=== PATIENT | female | born 1985 | race Caucasian/White ===

== ENCOUNTER → 2017-04-13 16:08 | Outpatient (CLI) | payer MEDICAID, SELFPAY ==
[2017-04-13 22:46] LABS: Chlamydia Trachomatis by PCR Negative (Negative); Neisserai gonorrhoeae by PCR Negative (Negative); Probe Check PASS; Sample Adequacy Control PASS; Specimen Processing Control PASS
== END ==
PROVIDERS: Visit Provider Obstetrics & Gynecology
DX: Z12.4 Encounter for screening for malignant neoplasm of cervix (principal); Z11.3 Encounter for screening for infections with a predominantly sexual mode of transmission
CPT/HCPCS: 87491; 87591

== ENCOUNTER → 2017-06-07 09:07 | Outpatient (CLI) | payer MEDICAID, SELFPAY | PROVIDERS: Family Provider Family Medicine; PCP Family Medicine; Visit Provider Family Medicine | DX: R00.2 Palpitations (principal) | CPT/HCPCS: 93225; 93226 ==

== ENCOUNTER → 2017-06-18 11:33 | Outpatient (CLI) | payer MEDICAID, SELFPAY ==
--- NOTE | 2017-06-18 17:27 | STRESSREP ---
Stress Test Report Exercise stress test. 31-year-old lady with a history of chest pain. Stress protocol: Resting EKG demonstrates normal sinus rhythm with rate of 90 bpm. Resting blood pressure is 122/90 mmHg. The patient exercised according to regular Diego protocol for total duration of 9 minutes completing stage III of the Diego protocol. The maximum heart rate attained was 173 bpm which was 91% of maximum predicted heart rate. The maximum workload attained was 10.1 metabolic equivalents. At rest there were no ST or T-wave changes noted suggest ischemia at peak exercise upsloping ST changes only were noted with no meet the criteria for ischemia. No clinical angina was noted no chest pain was noted. The test was terminated due to leg fatigue. The resting blood pressure is 122/90 with a peak blood pressure 180/84. No arrhythmias were noted. Conclusion: Exercise stress test with no EKG criteria for ischemia at a high workload. Good functional aerobic capacity.
== END ==
PROVIDERS: Family Provider Family Medicine; PCP Family Medicine; Visit Provider Family Medicine
DX: R07.89 Other chest pain (principal)
CPT/HCPCS: 93017

== ENCOUNTER 2018-01-23 11:43 | Emergency (ER) | payer MEDICAID, SELFPAY ==
[2018-01-23 11:44] VITALS: BP 152/94; PULSE 100; RESP 16; TEMP 36.9; O2SAT 96; BMI 31.8
--- NOTE | 2018-01-23 12:10 | ED.VISSUMM ---
- ER Visit Summary Date of Service: 01/23/18 Chief Complaint: Lower abdominal discomfort History of Present Illness: The patient is a 32 F no significant past medical history. Prior . Patient states she had gradual onset of mild lower abdominal discomfort yesterday. Somewhat worse. She denies nausea, vomiting, diarrhea or constipation. No dysuria. No vaginal bleeding or discharge. Last menstrual period was last week. No fever or back pain. No upper abdominal pain. Normal appetite. No specific right lower quadrant pain. Physical Examination: Young female. No acute distress. Vital signs are stable and afebrile. H EENT exam unremarkable. Lungs clear to auscultation bilaterally. Heart regular rhythm no murmur. Abdomen is. No peritoneal signs. No reproducible tenderness but she complains of suprapubic discomfort. No hernias or masses. Nondistended. No McBurney's point tenderness. Upper abdomen is benign. Patient is moving all 4 extremities. They are neurovascularly intact. No edema. Back nontender. Neurologically awake and alert with no focal motor deficits. Test Results: Urinalysis shows no acute abnormality. No signs of infection. Urine is negative. Emergency Department Course and Treatment: On repeat exam patient is doing well 12:56 PM. Abdomen is benign. She will be discharged to home with outpatient follow-up. Treatment Plan: Return to ER feeling worse. Follow-up with her primary care physician. Disposition: Discharge Impression: Lower abdominal pain of uncertain etiology This note was generated with [employer] dictation software. It may contain incorrect words, spelling, and punctuation that were not noted in review of the chart prior to signing ED Disposition - Plan for ED Patient: Chief Complaint: Abd Pain Referrals: Giuseppe Chin MD [Primary Care Provider] -
[2018-01-23 12:36] LABS: Bacteria 0 SEEN /hpf (None Seen); Mucous, Urine 0 SEEN /hpf (<or=2+); Red Blood Cells-Urine 0 SEEN /hpf (0-5); White Blood Cells 0 SEEN /hpf (0-5)
[2018-01-23 12:45] LABS: Color, Urine Yellow (Yellow); Glucose, Dipstick Normal (Normal); Ketone-Dipstick Negative (Negative); Leukocyte Esterase-Dipstick Negative /ul (Negative); Nitrite-Dipstick Negative (Negative); Occult Blood-Urine 50 /ul (Negative); Protein-Dipstick Negative (Negative); Urine Bilirubin Dipstick Negative (Negative); Urine Clarity Clear (Clear); Urine Urobilinogen Normal (Normal)
[2018-01-23 12:48] LABS: Internal QC Validated? YES +Cl - CLEAR BKGD; Pregnancy, Urine Negative Negative
[2018-01-23 12:51] LABS: Squamous Epithelial Cells - UA 0-5 SEEN /hpf (5-10)
--- NOTE | 2018-01-23 12:58 | ED.DEP ---
ED Disposition - Plan for ED Patient: Disposition: Home or Assisted Living Chief Complaint: Abd Pain Instructions: ED Abdominal Pain Unkn Cause Referrals: Giuseppe Chin MD [Primary Care Provider] - 1 Week if not improving Additional Instructions: Return to the ER if increasing pain, fever or localizes in your right lower quadrant. Otherwise follow-up your primary care physician. Your urine and urinalysis were both negative.
[2018-01-23 13:12] VITALS: BP 117/72; PULSE 86; RESP 16; O2SAT 98
== END 2018-01-23 13:13 | disposition home or self-care (01) ==
PROVIDERS: Emergency Provider Emergency Medicine; Family Provider Family Medicine; PCP Family Medicine
DX: R10.30 Lower abdominal pain, unspecified (principal); Z72.0 Tobacco use; Z79.899 Other long term (current) drug therapy
CPT/HCPCS: 81001; 81025; 99282

== ENCOUNTER → 2018-03-21 08:29 | Outpatient (CLI) | payer MEDICAID, SELFPAY ==
--- NOTE | 2018-03-21 08:32 | RAD_ITS ---
STUDY: AIR-CONTRAST UPPER GI SERIES WITH SMALL BOWEL FOLLOW-THROUGH EXAMINATION. REASON FOR EXAM: Female, 32 years old. One-year history of diarrhea with abdominal pain and abdominal bloating. FLUOROSCOPY TIME (if supplied): (1:32) minutes/seconds. 18 fluoroscopic images were obtained. TECHNIQUE: The patient ingested barium. Multiple images of the esophagus, stomach and duodenum were obtained. Following this, a small bowel follow-through examination was performed. COMPARISON: None. FINDINGS: The esophagus is unremarkable. There is no evidence of esophageal obstruction. No evidence of reflux. No mass lesion is seen. The stomach is unremarkable. There is no evidence of ulceration. No mass lesion is seen. There is evidence of a small diverticulum in the second portion of the duodenum. A small bowel follow-through examination was then obtained. The small bowel transit is normal. There is no evidence of intrinsic or extrinsic small bowel disease. The terminal ileum is unremarkable. RAD/Upper GI/w Small Bowel IMPRESSION: Unremarkable examination except for a small diverticulum in the medial aspect of the second portion of the duodenum. Electronically Signed: Jose Centeno MD at 9:49 EST Tel [phone], Service support ,
== END ==
PROVIDERS: Family Provider Family Medicine; PCP Family Medicine; Referring Provider Nurse Practitioner Adult Health; Visit Provider Nurse Practitioner Adult Health
DX: R19.7 Diarrhea, unspecified (principal)
CPT/HCPCS: 74249

== ENCOUNTER → 2018-11-07 18:02 | Outpatient (CLI) | payer MEDICAID, SELFPAY ==
[2018-11-07 09:05] VITALS: BMI 31.8
[2018-11-07 21:54] LABS: Chlamydia Trachomatis by PCR Negative (Negative); Neisserai gonorrhoeae by PCR Negative (Negative); Probe Check PASS; Sample Adequacy Control PASS; Specimen Processing Control PASS
== END ==
PROVIDERS: Referring Provider Nurse Practitioner Women's Health; Visit Provider Nurse Practitioner Women's Health
DX: A64 Unspecified sexually transmitted disease (principal)
CPT/HCPCS: 87491; 87591

== ENCOUNTER 2019-10-13 17:54 | Emergency (ER) | payer MEDICAID, SELFPAY ==
[2018-11-17 09:02] VITALS: BMI 37.3
[2019-10-13 17:55] VITALS: BP 139/89; PULSE 99; RESP 16; TEMP 36.3; O2SAT 96; BMI 37.2
--- NOTE | 2019-10-13 18:30 | ED.VIS.FLU ---
History of Present Illness Chief Complaint: Cough Informant: Patient Known exposure: Yes - friend, + COVID Onset: Days Context: Gradual Onset Timing: Continuous Associated Symptoms: Cough, Fever - subjective, Sore throat Chest Pain: None Narrative: Patient is a 33-year-old female that has a history of migraines as well as tobacco use presenting with 5 days of cough. She states it was just in the morning in the evening but now is been worse and is all day. He states he started to have some mucus production. She said 2 episodes of posttussive emesis today. She thinks she might of had a fever 6 days ago as well as generalized weakness but no other symptoms. Of note patient was recently on a course of Keflex and Bactrim for MRSA skin infection and just took her last dose been a biotics for that yesterday. Patient states she had a friend over 1 week ago who tested positive for COVID 3 days after she saw her. Patient denies any GI or symptoms. She denies any change in her taste or smell. She does have a mild headache but states it is not unusual for her. No other complaints at this time. Past Medical History - Allergies and Home Meds Allergies/Adverse Reactions: Allergies No Known Allergies Allergy (Verified 10/13/19 17:55) Primary Care Physician: Giuseppe Chin MD [Primary Care Provider] - Past Medical History: - - MRSA, migraines Smoking Status: Current every day smoker Review of Systems General: Reports: Chills, Malaise ENT: Reports: Sore throat - yesterday. Denies: Bilateral ear pain, Rhinorrhea Cardiovascular: Denies: Chest pain, Palpitations Respiratory: Reports: Cough, Sputum. Denies: Dyspnea, Dyspnea on exertion Gastrointestinal: Reports: Vomiting - post tussive. Denies: Abdominal pain, Nausea, Diarrhea, Melena, Hematochezia Genitourinary: Denies: Dysuria, Hematuria, Frequency Musculoskeletal: Denies: Myalgias, Arthralgias Skin: Denies: Rash Neurological: Denies: Headache, Weakness, Numbness Physical Exam Vital Signs/Narrative: Vital Signs Temp Pulse Resp BP Pulse Ox 10/13/19 17:55 97.4 F L 99 16 139/89 H 96 Inital Vital Signs reviewed: Yes General: Well nourished, Well developed, Obese Head: Normocephalic, Atraumatic Eyes: Perrl, EOMI ENT: Moist mucous membranes, TM's clear Neck: Supple, Nontender, No lymphadenopathy, No JVD Cardiovascular: Regular rate, Regular rhythm, No murmurs Respiratory: Negative for: Wheezing, Diminished, Decreased Air Movement Abdomen: Soft, Nontender, Nondistended, Normal bowel sounds Back: Nontender, Normal Inspection Extremities: Nontender, No edema Skin: Normal color, No rash Neurological: Alert, Oriented x3, Cranial nerves II-XII grossly intact, Normal Strength, Normal Sensation Psychological: Normal affect Diagnostic/Tx/Re-eval Chest X-Ray - ED: 1 View, Read by ED Physician, Read by Radiologist, Right Infiltrate, Left Infiltrate Clinical Impression(s) from Imaging Studies Chest X-Ray 10/13/19 19:10 IMPRESSION: patchy bilateral pulmonary infiltrates most significant within the right lower lobe likely pneumonia, possible atypical viral pneumonia. Electronically Signed: Abiodun Green, at 20:10 EDT Tel , Service support , Laboratory Data 10/13/19 18:40 COVID-19 (BHANU) Negative - Medical Decision Making Patient is evaluated for 5 days of respiratory symptoms. She is had a known exposure to coronavirus. She appears nontoxic in no acute distress. She is not tachypneic or hypoxic. She is clear breath sounds. Chest x-ray is obtained which does show patchy bilateral infiltrates most predominant in the right lower lobe consistent with a viral pneumonia. Patient be treated with doxycycline for atypical infection. She is not wheezing and I do not think steroids are indicated at this time nor inhaler. Patient is given return precautions. She is stable she will be tested on a send out lab for coronavirus. She is counseled that she should treat herself as if she does have COVID-19 until her results return or she is 3 days without symptoms. Patient is counseled on signs and symptoms requiring return to the emergency room. Patient verbalizes agreement and understand this plan. Patient discharged home in stable and improved condition. Patient is given first dose of doxycycline in the emergency room. ED Disposition - Plan for ED Patient: Disposition: Home or Assisted Living Diagnosis: Bilateral pneumonia, Suspected COVID-19 virus infection Prescriptions: Doxycycline 100 mg PO BID #14 cap Transmission Status: Pending to [facility] Referrals: Giuseppe Chin MD [Primary Care Provider] - Additional Instructions: I suspect that you have coronavirus infection. The swab will take 3 to 5 days to return. He will be contacted with the results. In the meantime please treat yourself as if you do have it and quarantine yourself from others to prevent the spread. You may take [id number] cough and decongestant medicines as needed for symptoms. Please return the emergency room if you have any worsening symptoms such as signs of dehydration or difficulty breathing. At this time you are stable to go home. Your chest x-ray does show signs of pneumonia which is why you were started on antibiotics.
--- NOTE | 2019-10-13 19:10 | RAD_ITS ---
STUDY: X-RAY CHEST REASON FOR EXAM: Female, 33 years old. COUGH X 1 WEEK, PAIN WITH COUGH TECHNIQUE: Portable chest COMPARISON: None. FINDINGS: There are patchy bilateral pulmonary infiltrates most significant within the right lower lobe. There is no demonstrated pleural abnormality. Normal size heart. Normal mediastinum and skye. Normal visualized pulmonary arteries. Normal visualized aortic arch and descending thoracic aorta. Normal visualized thoracic spine. Normal visualized ribs, clavicles, and shoulders. There is no demonstrated abnormality of the visualized soft tissue structures of the upper abdomen. RAD/Chest 1 View (Portable) IMPRESSION: patchy bilateral pulmonary infiltrates most significant within the right lower lobe likely pneumonia, possible atypical viral pneumonia. Electronically Signed: Abiodun Green, at 20:10 EDT Tel , Service support ,
[2019-10-13 20:39] LABS: Probe Check PASS; Specimen Processing Control PASS
[2019-10-13] MEDS: Doxycycline 100 MG CAPSULE PO (20:54)
[2019-10-13 20:55] VITALS: BP 122/73; PULSE 86; RESP 16; O2SAT 96
== END 2019-10-13 20:57 | disposition home or self-care (01) ==
PROVIDERS: Emergency Provider Emergency Medicine; PCP Family Medicine
DX: J18.9 Pneumonia, unspecified organism (principal); Z20.828 Contact with and (suspected) exposure to other viral communicable diseases; R50.9 Fever, unspecified; R05 Cough; J02.9 Acute pharyngitis, unspecified; F17.200 Nicotine dependence, unspecified, uncomplicated; Z86.14 Personal history of Methicillin resistant Staphylococcus aureus infection
CPT/HCPCS: 71045; 87635; 94799; 99283; U0003

== ENCOUNTER → 2019-12-11 12:00 | Outpatient (CLI) | payer MEDICAID, SELFPAY ==
[2019-12-11 11:49] VITALS: BMI 37.2
[2019-12-11 13:36] LABS: HIV - WCH Non-Reactive (Nonreactive)
[2019-12-12 16:19] LABS: HSV 2 IgG < 0.91 index (0.00-0.90)
[2019-12-14 02:04] LABS: Rapid Plasmin Reagin (RPR) NONREACTIVE (NONREACTIVE)
[2019-12-14 04:11] LABS: Chlamydia By Nucleic Acid AMP Negative (Negative)
[2019-12-14 11:06] LABS: Gonococcus By Nucleic Acid AMP Negative (Negative)
== END ==
PROVIDERS: PCP Family Medicine; Referring Provider Nurse Practitioner Women's Health; Visit Provider Nurse Practitioner Women's Health
DX: Z11.3 Encounter for screening for infections with a predominantly sexual mode of transmission (principal)
CPT/HCPCS: 36415; 86592; 86695; 86696; 86703; 87491; 87591

== ENCOUNTER 2019-12-22 09:24 | Emergency (ER) | payer MEDICAID, SELFPAY ==
[2019-12-11 11:49] VITALS: BMI 37.2
[2019-12-22 09:26] VITALS: BP 136/85; PULSE 77; RESP 18; TEMP 37.1; O2SAT 97; BMI 37.8
--- NOTE | 2019-12-22 09:37 | RAD_ITS ---
STUDY: X-RAY CHEST REASON FOR EXAM: Female, 33 years old. COUGH,SOB, CHEST PAIN TECHNIQUE: Single AP portable view of the chest. COMPARISON: None. FINDINGS: The lungs are clear and expanded. There is no demonstrated pleural abnormality. Normal size heart. Normal mediastinum and skye. Normal visualized pulmonary arteries. Normal visualized aortic arch and descending thoracic aorta. Normal visualized thoracic spine. Normal visualized ribs, clavicles, and shoulders. There is no demonstrated abnormality of the visualized soft tissue structures of the upper abdomen. RAD/Chest 1 View (Portable) IMPRESSION: Normal x-ray examination of the chest. Electronically Signed: Farzana Lopez, at 11:00 EDT Tel , Service support ,
[2019-12-22 09:38] VITALS: BP 136/85; PULSE 77; RESP 18; TEMP 37.1; O2SAT 97
--- NOTE | 2019-12-22 09:38 | ED.DCSUM_ITS ---
History of Present Illness Informant: Patient Onset: Days Current Severity: Moderate Narrative: 33 year old female with no significant PMH presents with productive cough and shortness of breath x5 days. She has chest pain and tightness when coughing. Today she coughed so hard she vomited. 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 She had pneumonia in October 2019 and tested negative for COVID at that time. She smokes 1 PPD. Denies fevers, chills, nausea, hemoptysis, abdominal pain, diarrhea, or rash. <FranciscoNadja - Last Filed: 12/22/19 15:27> <Makc Morales - Last Filed: 12/22/19 16:24> Chief Complaint: Shortness of Breath Past Medical History Past Medical History: None Smoking Status: Current every day smoker <Nadja Singh - Last Filed: 12/22/19 15:27> <Mack Morales - Last Filed: 12/22/19 16:24> - Allergies and Home Meds Allergies/Adverse Reactions: Allergies No Known Allergies Allergy (Verified 12/22/19 09:26) Primary Care Physician: Giuseppe Chin MD [Primary Care Provider] - Review of Systems General: Denies: Chills, Fever, Sweats Eyes: Denies: Visual changes - bilaterally, Diplopia ENT: Denies: Rhinorrhea, Sore throat Cardiovascular: Reports: Chest pain. Denies: Palpitations Respiratory: Reports: Dyspnea, Cough, Sputum. Denies: Dyspnea on exertion Gastrointestinal: Denies: Abdominal pain, Nausea, Vomiting, Diarrhea, Melena, Hematochezia Genitourinary: Denies: Dysuria, Hematuria, Frequency Musculoskeletal: Denies: Back pain, Extremity Pain Skin: Reports: Wounds. Denies: Rash Neurological: Denies: Headache, Weakness, Numbness <FarnazKeysha albaa - Last Filed: 12/22/19 15:27> Physical Exam Vital Signs/Narrative: Vital Signs Temp Pulse Resp BP Pulse Ox 12/22/19 09:38 98.7 F 77 18 136/85 H 97 12/22/19 09:26 98.7 F 77 18 136/85 H 97 General: Well nourished, Well developed, No Acute Distress Head: Normocephalic, Atraumatic Eyes: Perrl, EOMI ENT: Moist mucous membranes, No rhinorrhea Neck: Supple, Nontender Cardiovascular: Regular rate, Regular rhythm, No murmurs Respiratory: No distress, CTA bilaterally, Chest nontender Abdomen: Soft, Nontender, Nondistended, Normal bowel sounds Back: Normal Inspection Extremities: No edema Skin: Normal color, No rash Neurological: Alert, Oriented x3, Cranial nerves II-XII grossly intact Psychological: Normal affect, Normal Mood <Nadja Singh - Last Filed: 12/22/19 15:27> Diagnostic/Tx/Re-eval Clinical Impression(s) from Imaging Studies Chest X-Ray 12/22/19 09:37 IMPRESSION: Normal x-ray examination of the chest. Electronically Signed: Farzana Lopez, at 11:00 EDT Tel , Service support , Laboratory Data 12/22/19 12/22/19 12/22/19 09:30 09:30 09:30 WBC 4.5 RBC 5.26 Hgb 15.7 H Hct 45.0 MCV 85.6 MCH 29.8 MCHC 34.9 RDW Std Deviation 37.5 RDW Coeff of Criselda 11.9 Plt Count 206 MPV 8.9 Immature Gran % (Auto) 0.200 Neut % (Auto) 51.1 Lymph % (Auto) 36.1 [facility] % (Auto) 9.7 Eos % (Auto) 2.2 Baso % (Auto) 0.7 Absolute Neuts (auto) 2.3 Absolute Lymphs (auto) 1.64 Nucleated RBC % 0 Sodium 138 Potassium 3.6 Chloride 107 Carbon Dioxide 24.0 Anion Gap 7 BUN 10 Creatinine 0.85 Estim Creat Clear Calc 78.60 Est GFR (MDRD) Af Amer 99 Est GFR (MDRD) Non-Af 82 BUN/Creatinine Ratio 11.7 Glucose 106 Lactic Acid 1.5 Calcium 8.8 Total Bilirubin 0.40 AST 23 ALT 46 Alkaline Phosphatase 69 Total Protein 7.3 Albumin 3.8 Globulin 3.5 Albumin/Globulin Ratio 1.1 - Medical Decision Making Patient appears well nontoxic. Vital signs show bradycardia 52, otherwise normal. Sat 98% on room air. She states she has been told she has a low heart rate before. Lungs clear to auscultation with transient wheezing in right upper lobe. She was treated with albuterol. Basic labs are normal. Chest x-ray shows no acute process. COVID-19 test is pending and she needs to self quarantine. We discussed return precautions including chest pain or worsening shortness of breath. Symptomatic treatment for now and she was given a prescription for albuterol. She was agreeable and discharged home in stable condition. <Nadja Singh - Last Filed: 12/22/19 15:27> - Medical Decision Making I supervised the PA and have performed my own pertinent history and physical. Results and treatment plan were discussed. HPI: Patient reports she has a cough began 5 days ago. Is productive yellow sputum without blood. She reports chest pain with coughing only. She reports that she has been wheezing. States that she ran out of her inhaler. Patient denies any known sick contacts. 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 PE: Vitals: Stable. Afebrile. General: Well-nourished and well-developed. Head: Normocephalic atraumatic. Neck: Supple, no lymphadenopathy. No JVD. Nontender. Cardiovascular: Regular rate and rhythm. No murmurs. Respiratory: No respiratory distress. Clear to auscultation bilaterally. Abdominal: Soft, nontender, nondistended, normal bowel sounds. No guarding, rebound, or peritoneal signs. Back: Nontender. Extremities: Nontender, no edema. Skin: Normal color, no rash. Neurologic: Alert and oriented ?3. Cranial nerves II through XII are intact. Normal strength and sensation. Psych: Normal affect. Emergency Department course: Chest x-ray shows no infiltrate. Labs are unremarkable. COVID-19 was sent and is pending. Treatment Plan: Patient be discharged with an albuterol MDI. She is instructed to quarantine. Follow-up with her primary care physician in 10 to 14 days if not improving. Return to the emergency department for any worsening symptoms. This note was generated with [employer] dictation software. It may contain incorrect words, spelling, and punctuation that were not noted in review of the chart prior to signing. <Mack Morales - Last Filed: 12/22/19 16:24> ED Disposition <Nadja Singh - Last Filed: 12/22/19 15:27> <Mack Morales - Last Filed: 12/22/19 16:24> - Plan for ED Patient: Disposition: Home or Assisted Living Diagnosis: Suspected COVID-19 virus infection, Cough Instructions: ED Upper Resp Infec No Abx Tx Prescriptions: Albuterol Inhaler [Ventolin Hfa] 1 puff INHALATION Q4H PRN PRN #1 inhaler PRN Reason: Allergies Transmission Status: Received by [facility] #[id number] Referrals: Giuseppe Chin MD [Primary Care Provider] -
[2019-12-22 10:00] LABS: Absolute Lymphocyte Count 1.64 X10^3/uL (0.83-4.51); Absolute Neutrophil Count 2.3 X10^3/uL (2.0-7.7); Basophil# 0.03 X10^3/uL; Basophil% 0.7 % (0-1); Eosinophils% 2.2 % (0-5); Hemoglobin 15.7 g/dL (12.0-15.0); Lymphocyte # 1.64 X10^3/ul (4.0); Lymphocyte % 36.1 % (19-41); Mean Corp Hgb Conc 34.9 g/dL (32-36); Mean Corpuscular Hgb 29.8 pg (27.0-32.0); Mean Corpuscular Volume 85.6 fL (81-99); Mean Platelet Vol. 8.9 fl (6.2-12.0); Monocyte# 0.44 X10^3/uL; Monocyte% 9.7 % (0-10); NRBC Flagged by Analyzer 0 % (0-5); Neutrophil # 2.32 X10^3/uL (2.7-7.7); Neutrophil % 51.1 % (47-70); Platelet Count 206 K/mm3 (150-450); RBC Distribution Width CV 11.9 % (11.6-14.6); RBC Distribution Width SD 37.5 fl (35.1-43.9); Red Blood Count 5.26 M/mm3 (4.2-5.4); White Blood Count 4.5 K/mm3 (4.4-11.0)
[2019-12-22 10:24] LABS: Lactic Acid 1.5 mmol/L (0.4-1.9)
[2019-12-22 10:34] LABS: ALB/GLOB Ratio 1.1 RATIO (0.9-2.4); AST(SGOT) 23 U/L (15-37); Alanine Aminotransfer ALT/SGPT 46 U/L (13-56); Albumin, Serum 3.8 g/dL (3.2-5.0); Alkaline Phosphatase 69 U/L (45-117); Anion Gap 7 (5-15); BUN 10 mg/dL (7-18); BUN/Creat Ratio 11.7 RATIO (10-20); Calcium,Total 8.8 mg/dL (8.5-10.1); Chloride 107 mmol/L (98-107); Creatinine, Serum 0.85 mg/dL (0.55-1.02); EST Glomerular Filtration Rate 82 mL/min (>60); Est Glom Filt Rate - Afr Amer 99 mL/min (>60); Globulin 3.5 g/dL (2.2-4.2); Glucose 106 mg/dL (74-106); Potassium 3.6 mmol/L (3.5-5.1); Protein, Total 7.3 g/dL (6.4-8.2); Sodium Level 138 mmol/L (136-145)
[2019-12-22 11:14] VITALS: BP 121/72; PULSE 62; RESP 14; TEMP 36.6; O2SAT 97
[2019-12-22 11:34] VITALS: BP 153/65; PULSE 52; RESP 13; O2SAT 98
== END 2019-12-22 11:45 | disposition home or self-care (01) ==
LOC: ED 10:18
PROVIDERS: Emergency Provider Physician Assistant; PCP Family Medicine
DX: Z03.818 Encounter for observation for suspected exposure to other biological agents ruled out (principal); R05 Cough; R06.2 Wheezing; R06.02 Shortness of breath; F17.200 Nicotine dependence, unspecified, uncomplicated; Z87.01 Personal history of pneumonia (recurrent)
CPT/HCPCS: 36415; 71045; 80053; 83605; 85025; 87040; 99284

== ENCOUNTER → 2020-01-08 | Outpatient (CLI) | payer MEDICAID, SELFPAY ==
--- NOTE | 2020-01-08 | TISS_PTH ---
PATIENT: ASIA DALTON LOC: [facility] U#:[id number] AGE/SX: 34/F ROOM: RE01/08/[address]: Dr. Kimber Ledbetter MD : [id number] BED: DIS: 01/08/2020 SPEC #: [id number] RECD: 01/08/20 16:42 STATUS: INES BELINDA #: [id number] DANIKA: 01/08/20 00:[address]: Kimber Ledbetter DEPT: SURGICAL PATHOLOGY RECD BY: Leonidas Menezes ENTERED: 01/09/20 09:30 SP TYPE: Tissue Bx OT DR: Dr. Giuseppe Chin MD Tissues: TISSUE SURGICALLY REMOVED Procedures: Surgery Specimen Level IV HEADER OPERATION: Skin tag removal PRE-OP DIAGNOSIS: Skin tag vulva TISSUE SUBMITTED: Skin tag vulva MICROSCOPIC DIAGNOSIS Skin tag of vulva, biopsy: Fragments of fibroepithelial polyp, inflamed. Hyperkeratosis and focal parakeratosis. AM:bryce 01/10/20 MICROSCOPIC DESCRIPTION Slides are reviewed. GROSS DESCRIPTION Received is one container labeled with the patient's name and not further designated. The specimen consists of multiple polypoid pieces of haddad-light brown skin that in aggregate measure 3 x 1.5 x 0.3 and 0.2 to 0.7 cm in greatest dimension. The entire specimen is submitted in one cassette. / YANELIS:byrce 01/09/20 TC:5 CPT: 84220
[2020-01-08 09:09] VITALS: BMI 37.9
== END | disposition home or self-care (01) ==
LOC: LABSPEC 17:20
PROVIDERS: PCP Family Medicine; Referring Provider Obstetrics & Gynecology; Visit Provider Obstetrics & Gynecology
DX: N76.0 Acute vaginitis (principal)
CPT/HCPCS: 87070; 87205; 88305

== ENCOUNTER 2020-03-31 17:16 | Emergency (ER) | payer MEDICAID, SELFPAY ==
[2020-01-08 09:09] VITALS: BMI 37.9
[2020-03-31 17:17] VITALS: BP 140/72; PULSE 76; RESP 18; TEMP 36; O2SAT 97; BMI 39.9
--- NOTE | 2020-03-31 17:46 | ED.DCSUM_ITS ---
History of Present Illness Chief Complaint: Cellulitis Narrative: 34-year-old female presenting with cellulitis on left lower abdomen. Patient was seen in urgent care yesterday and started on Bactrim and Keflex. She is only had 1 day of antibiotics. She was told that if the outlined area became erythematous outside the line she should come to the ER. Patient is not had any systemic signs or symptoms. No fevers, chills, nausea, vomiting. She does have a history of MRSA. Past Medical History - Allergies and Home Meds Allergies/Adverse Reactions: Allergies No Known Allergies Allergy (Verified 03/31/20 17:16) Primary Care Physician: Giuseppe Chin MD [Primary Care Provider] - Past Medical History: - - Cellulitis, MRSA Surgical History: noncontributory Lives: Alone Smoking Status: Current every day smoker Alcohol: None Drugs: None Review of Systems General: Denies: Chills, Fever, Sweats Eyes: Denies: Visual changes - bilaterally, Diplopia ENT: Denies: Rhinorrhea, Sore throat Cardiovascular: Denies: Chest pain, Palpitations Respiratory: Denies: Dyspnea, Cough, Dyspnea on exertion Genitourinary: Denies: Dysuria, Hematuria, Frequency Musculoskeletal: Denies: Back pain, Extremity Pain Skin: Reports: Abscess, Abrasions Neurological: Denies: Headache, Weakness, Numbness Psych: Denies: Depression, Anxiety Physical Exam Vital Signs/Narrative: Vital Signs Temp Pulse Resp BP Pulse Ox 03/31/20 17:17 96.8 F L 76 18 140/72 H 97 General: Well nourished, No Acute Distress Head: Normocephalic, Atraumatic Eyes: Perrl, EOMI ENT: Moist mucous membranes Cardiovascular: Regular rate, Regular rhythm Respiratory: No distress, CTA bilaterally Abdomen: Soft, Nondistended Skin: Rash - 3 cm circular area of erythema, warmth. There is a central scab where this was drained yesterday. There is no fluctuance or mass. Diagnostic/Tx/Re-eval - Medical Decision Making 34-year-old female with history of MRSA and cellulitis on the left lower abdomen presents for evaluation given that her redness has spread slightly outside of the marked area that was done yesterday by urgent care. She has no systemic signs or symptoms. She has had less than 24 hours of antibiotics. She is on Bactrim and Keflex. Does appear to have cellulitis on the left lower abdomen I recommended continuing antibiotics and monitoring this. She will be given a [id number] prescription for clindamycin if these antibiotics are not effective. She is counseled that if she starts to feel ill or the rash starts to spread more rapidly she should return to the ED for repeat evaluation. Patient is amenable to this plan and she stable for discharge. Impression: 1. Cellulitis left lower abdomen ED Disposition - Plan for ED Patient: Disposition: Home or Assisted Living Instructions: Cellulitis Prescriptions: Clindamycin [Cleocin] 450 mg PO TID #90 cap Transmission Status: Received by [facility] #30 Referrals: Giuseppe Chin MD [Primary Care Provider] -
== END 2020-03-31 17:57 | disposition home or self-care (01) ==
PROVIDERS: Emergency Provider Student in an Organized Health Care Education/Training Program; PCP Family Medicine
DX: L03.311 Cellulitis of abdominal wall (principal); F17.200 Nicotine dependence, unspecified, uncomplicated; Z86.14 Personal history of Methicillin resistant Staphylococcus aureus infection
CPT/HCPCS: 99282

== ENCOUNTER → 2021-09-29 | Outpatient (CLI) | payer MEDICAID, SELFPAY ==
[2021-09-29 15:46] LABS: Absolute Lymphocyte Count 1.83 X10^3/uL (0.83-4.51); Absolute Neutrophil Count 2.4 X10^3/uL (2.0-7.7); Basophil# 0.04 X10^3/uL; Basophil% 0.8 % (0-1); Eosinophil# 0.22 X10^3/uL; Eosinophils% 4.3 % (0-5); Hematocrit 43.6 % (37-47); Hemoglobin 15.2 g/dL (12.0-15.0); Lymphocyte # 1.83 X10^3/ul (0.83-4.51); Lymphocyte % 36.2 % (19-41); Mean Corp Hgb Conc 34.9 g/dL (32-36); Mean Corpuscular Hgb 30.1 pg (27.0-32.0); Mean Corpuscular Volume 86.3 fL (81-99); Mean Platelet Vol. 9.5 fl (6.2-12.0); Monocyte# 0.53 X10^3/uL; Monocyte% 10.5 % (0-10); NRBC Flagged by Analyzer 0 % (0-5); Neutrophil # 2.43 X10^3/uL (2.7-7.7); Platelet Count 224 K/mm3 (150-450); RBC Distribution Width CV 12.6 % (11.6-14.6); RBC Distribution Width SD 39.9 fl (35.1-43.9); Red Blood Count 5.05 M/mm3 (4.2-5.4); White Blood Count 5.1 K/mm3 (4.4-11.0)
[2021-09-29 15:55] LABS: Erythrocyte Sedimentation Rate 5 mm/hr (0-30)
[2021-09-29 16:28] LABS: ALB/GLOB Ratio 1.2 RATIO (0.9-2.4); AST(SGOT) 16 U/L (15-37); Alanine Aminotransfer ALT/SGPT 33 U/L (13-56); Albumin, Serum 3.7 g/dL (3.2-5.0); Alkaline Phosphatase 47 U/L (45-117); Anion Gap 6 (5-15); BUN 11 mg/dL (7-18); BUN/Creat Ratio 13.5 RATIO (10-20); Chloride 107 mmol/L (98-107); Creatinine, Serum 0.82 mg/dL (0.55-1.02); EST Glomerular Filtration Rate 85 mL/min (>60); Est Glom Filt Rate - Afr Amer 103 mL/min (>60); Globulin 3.2 g/dL (2.2-4.2); Glucose 78 mg/dL (74-106); Potassium 3.6 mmol/L (3.5-5.1); Protein, Total 6.9 g/dL (6.4-8.2); Sodium Level 138 mmol/L (136-145); T4 Free Direct 0.83 ng/dL (0.76-1.46); Thyroid Stim Hormone (TSH) 2.72 uIU/mL (0.358-3.74)
[2021-09-29 19:05] LABS: T3 Total - Triiodothyronine 1.02 ng/mL (0.6-1.81)
[2021-10-02 12:08] LABS: RNP Ab 1.3 AI (0.0-0.9); SJOGREN'S Anti-SS-A test < 0.2 AI (0.0-0.9); SJOGREN'S Anti-SS-B test < 0.2 AI (0.0-0.9); Smith Ab <0.2 AI (0.0-0.9)
[2021-10-02 12:58] LABS: Thyroid Peroxidase AB < 8 IU/mL (0-34)
[2021-10-03 07:58] LABS: Anti-Histone Abs 0.7 Units (0.0-0.9); Anti-Nuclear Antibody Test Negative (.); Anti-dsDNA Ab 1 IU/mL (0-9)
== END | disposition home or self-care (01) ==
PROVIDERS: PCP Family Medicine
DX: L30.9 Dermatitis, unspecified (principal)
CPT/HCPCS: 36415; 80053; 84439; 84443; 84480; 85025; 85652; 86038; 86225; 86235; 86376

== ENCOUNTER → 2022-08-28 | Outpatient (CLI) | payer MEDICAID, SELFPAY ==
[2022-08-28 13:18] LABS: HIV - WCH Non-Reactive (Nonreactive); Hepatitis B Surface Antigen Non-Reactive (Nonreactive); Hepatitis C Antibody Non-Reactive (Nonreactive); Syphilis Antibodies Non-reactive
[2022-08-31 21:07] LABS: Chlamydia By Nucleic Acid AMP Negative (Negative); Gonococcus By Nucleic Acid AMP Negative (Negative)
[2022-09-03 21:07] LABS: HPV APTIMA, High Risk Positive (Negative); HPV Genotype 16, Aptima Negative (Negative); HPV Genotype 18,45 Aptima Negative (Negative)
== END | disposition home or self-care (01) ==
PROVIDERS: PCP Family Medicine; Referring Provider Obstetrics & Gynecology; Visit Provider Obstetrics & Gynecology
DX: Z12.4 Encounter for screening for malignant neoplasm of cervix (principal); Z11.3 Encounter for screening for infections with a predominantly sexual mode of transmission
CPT/HCPCS: 36415; 86703; 86780; 86803; 87340; 87491; 87591; 87624; 88175; G0145

== ENCOUNTER → 2022-09-29 | Outpatient (CLI) | payer MEDICAID, SELFPAY ==
--- NOTE | 2022-09-29 09:10 | BI_ITS ---
MAMMOGRAPHY - BILATERAL DIAGNOSTIC REASON FOR EXAM: Female, 36 years old. Bilateral breast tenderness x4 months PERTINENT HISTORY: Grandmothers with breast cancer TECHNIQUE: Digital examination. Mediolateral oblique (MLO) and craniocaudad (CC) views of both breasts were obtained, along with 3-D tomosynthesis. CAD: CAD was performed on this study. COMPARISON: No comparison mammograms available at this time. If any prior films become available, an addendum to this report can be generated. FINDINGS: Breast Composition: The breasts are heterogeneously dense, which may obscure small masses. There are no dominant masses or suspicious calcifications. No other significant abnormalities are identified. However, because the patient complains of bilateral breast tenderness and achiness in the upper outer quadrants, further evaluation of both breasts with ultrasound is recommended. BI/DIAG MAMM W/CAD, BILAT IMPRESSION: Further ultrasonographic evaluation recommended, as described above. Recall Side: Both Breasts ASSESSMENT CATEGORY: BIRADS Category 0: Incomplete. Need additional imaging evaluation. A letter regarding these results will be sent to the patient by the facility within 30 days. FOLLOW UP RECOMMENDATION: Ultrasound Recommended. (I) Approximately 10% of breast cancers are not detected by mammography. A normal mammogram should not delay biopsy of a clinically suspicious abnormality. Electronically Signed: Live Pinto MD at 10:00 EDT ,
--- NOTE | 2022-09-29 09:10 | US_ITS ---
STUDY: ULTRASOUND BREAST - RIGHT REASON FOR EXAM: Female, 36 years old. Right breast pain and achiness TECHNIQUE: Axial and longitudinal images of the RIGHT breast were performed with a high resolution ultrasound transducer. # OF IMAGES: 58 COMPARISON: None. FINDINGS: RIGHT Breast: Focused ultrasound in the upper lateral aspect of the right breast shows only normal dense fibroglandular tissue. There is no suspicious shadowing solid lesion, architectural distortion, or clustered shadowing calcifications. IMPRESSION: No suspicious sonographic findings ASSESSMENT CATEGORY: BIRADS Category 1: Negative. A letter regarding these results will be sent to the patient by the facility within 30 days. Electronically Signed: Live Pinto MD at 10:53 EDT , STUDY: ULTRASOUND BREAST - LEFT REASON FOR EXAM: Female, 36 years old. Bilateral breast pain and achiness TECHNIQUE: Axial and longitudinal images of the LEFT breast were performed with a high resolution ultrasound transducer. # OF IMAGES: 58 COMPARISON: None. FINDINGS: LEFT Breast: Focused ultrasound of the upper lateral aspect of the left breast shows only normal dense fibroglandular tissue. There is no suspicious shadowing solid lesion, architectural distortion, or clustered shadowing calcifications. US/Breast Limited Unilateral IMPRESSION: No suspicious sonographic findings ASSESSMENT CATEGORY: BIRADS Category 1: Negative. A letter regarding these results will be sent to the patient by the facility within 30 days. Electronically Signed: Live Pinto MD at 10:54 EDT ,
== END | disposition home or self-care (01) ==
LOC: OPBI 09:09
PROVIDERS: PCP Family Medicine; Referring Provider Obstetrics & Gynecology; Visit Provider Obstetrics & Gynecology
DX: N63.10 Unspecified lump in the right breast, unspecified quadrant (principal); N63.20 Unspecified lump in the left breast, unspecified quadrant; R92.8 Other abnormal and inconclusive findings on diagnostic imaging of breast
CPT/HCPCS: 77062; 76642; 77066; G0279

== ENCOUNTER → 2022-10-07 | Outpatient (CLI) | payer MEDICAID, SELFPAY ==
[2022-10-07 17:30] LABS: hCG Titer Quant., Serum 10946 mIU/mL (1-3)
== END | disposition home or self-care (01) ==
LOC: LAB 16:06
PROVIDERS: PCP Family Medicine; Referring Provider Obstetrics & Gynecology; Visit Provider Obstetrics & Gynecology
DX: N91.2 Amenorrhea, unspecified (principal)
CPT/HCPCS: 36415; 84702

== ENCOUNTER → 2022-10-08 | Outpatient (CLI) | payer MEDICAID, SELFPAY ==
--- NOTE | 2022-10-08 18:09 | US_ITS ---
STUDY: FIRST TRIMESTER OBSTETRICAL ULTRASOUND REASON FOR EXAM: Female, 36 years old Viability/STAT LMP: September 03, 2022 TECHNIQUE: Transabdominal and Transvaginal TECHNICAL QUALITY: Adequate. PRIOR ULTRASOUND: None. FINDINGS: There is visualization of a single gestational sac in a normal intrauterine position. The mean sac diameter (MSD) measures 1.2 cm, indicating an estimated gestational age (EGA) of 6 weeks, 0 days. The gestational sac shape is within normal limits. There is a visualized yolk sac. The yolk sac measures 0.3 cm. The placenta is non-visualized. There is no demonstrated embryo ( pole). The estimated gestation age (EGA) by LMP is 5 weeks, 0 days. The estimated date of delivery (KAREN) by LMP is June 10, 2023. The estimated gestation age (EGA) by US is 6 weeks, 0 days. The estimated date of delivery (KAREN) by US is June 03, 2023. The uterus measures 9.2 x 7.1 x 5.2 cm. There is no demonstrated uterine fibroid. The cervix is closed. There is IUD seen in the lower uterus. The right ovary is not visualized. The left ovary measures 3.9 x 3.3 x 2.7 cm. There is no left ovarian cyst. There is no visualized left adnexal mass or complex lesion. There is no fluid in the cul de sac. US/Transvaginal w/Preg US IMPRESSION: Intrauterine gestational sac at 6 weeks 0 days with yolk sac. There is no pole nor cardiac activity seen. IUD in the lower uterus. Electronically Signed: Gustavo Genao MD at 20:23 EDT ,
== END | disposition home or self-care (01) ==
LOC: OPUS 18:05
PROVIDERS: PCP Family Medicine; Referring Provider Obstetrics & Gynecology; Visit Provider Obstetrics & Gynecology
DX: T83.31XA Breakdown (mechanical) of intrauterine contraceptive device, initial encounter (principal); N91.2 Amenorrhea, unspecified; Z33.1 Pregnant state, incidental; X58.XXXA Exposure to other specified factors, initial encounter
CPT/HCPCS: 76817

== ENCOUNTER → 2022-10-21 | Outpatient (CLI) | payer MEDICAID, SELFPAY ==
--- NOTE | 2022-10-21 13:14 | US_ITS ---
STUDY: FIRST TRIMESTER OBSTETRICAL ULTRASOUND REASON FOR EXAM: Female, 36 years old w/IUD LMP: September 03, 2022. TECHNIQUE: Transvaginal TECHNICAL QUALITY: Adequate. PRIOR ULTRASOUND: Comparison is made with prior study dated October 08, 2022. FINDINGS: There is visualization of a single gestational sac in a normal intrauterine position. The mean sac diameter (MSD) measures 2.75 cm, indicating an estimated gestational age (EGA) of 7 weeks, 5 days. The gestational sac shape is within normal limits. There is a visualized yolk sac. The yolk sac measures 4.8 mm. The placenta is non-visualized. There is visualization of a live embryo. The crown-rump length (CRL) measures 1.38 cm, indicating an estimated gestational age (EGA) of 7 weeks, 5 days. There is demonstrated cardiac activity with a heart rate of 144 bpm. The estimated gestation age (EGA) by LMP is 6 weeks, 6 days. The estimated date of delivery (KAREN) by LMP is June 10, 2023. The estimated gestation age (EGA) by US is 7 weeks, 5 days. The estimated date of delivery (KAREN) by US is June 04, 2023. The uterus measures 10.9 cm x 6.9 cm x 6 cm. There is a 1.3 cm x 1 cm x 0.6 cm subchorionic bleed. Questionable small piece of IUD remnant in the lower uterine segment. There is no demonstrated uterine fibroid. The cervix is closed. The right ovary is not visualized. The left ovary measures 2.8 cm x 3.1 cm x 3.8 cm. There is a 2.8 cm x 3.1 cm x 3.8 cm corpus luteum cyst. There is no visualized left adnexal mass or complex lesion. There is no fluid in the cul de sac. US/Transvaginal w/Preg US IMPRESSION: Live uterine gestation with a mean gestational age of 7 weeks and 5 days. Small subchorionic bleed. Possible small piece of IUD reminiscent in the lower uterine segment. Electronically Signed: Jose Centeno MD at 15:39 EDT ,
== END | disposition home or self-care (01) ==
LOC: OPUS 13:13
PROVIDERS: PCP Family Medicine; Referring Provider Obstetrics & Gynecology; Visit Provider Obstetrics & Gynecology
DX: O26.30 Retained intrauterine contraceptive device in pregnancy, unspecified trimester (principal); N91.2 Amenorrhea, unspecified; Z3A.00 Weeks of gestation of pregnancy not specified; O99.891 Other specified diseases and conditions complicating pregnancy
CPT/HCPCS: 76817

== ENCOUNTER → 2022-10-28 | Outpatient (CLI) | payer MEDICAID, SELFPAY ==
--- NOTE | 2022-10-28 10:53 | US_ITS ---
STUDY: FIRST TRIMESTER OBSTETRICAL ULTRASOUND REASON FOR EXAM: Female, 36 years old threatened -possible iud piece still within the uterus LMP: August 27, 2022. TECHNIQUE: Transvaginal TECHNICAL QUALITY: Adequate. PRIOR ULTRASOUND: Comparison is made with prior study dated October 21, 2022. FINDINGS: There is visualization of a single gestational sac in a normal intrauterine position. There is a visualized yolk sac. The yolk sac measures 3 mm. The placenta is non-visualized. There is visualization of a live embryo. The crown-rump length (CRL) measures 2.1 cm, indicating an estimated gestational age (EGA) of 8 weeks, 4 days. There is demonstrated cardiac activity with a heart rate of 161 bpm. The estimated gestation age (EGA) by LMP is 8 weeks, 6 days. The estimated date of delivery (KAREN) by LMP is June 03, 2023. The estimated gestation age (EGA) by US is 8 weeks, 4 days. The estimated date of delivery (KAREN) by US is June 05, 2023. The uterus measures 12.4 cm x 7.7 cm x 6.1 cm. There is no demonstrated uterine fibroid. The cervix is closed. The right ovary is not visualized. The left ovary measures 3.3 cm x 2.9 cm x 1.9 cm. There is no left ovarian cyst. There is no visualized left adnexal mass or complex lesion. There is no fluid in the cul de sac. Stable linear area of increased echotexture in the lower uterine segment. US/Transvaginal w/Preg US IMPRESSION: Single live intrauterine gestation with a mean gestational age of 8 weeks and 4 days. Electronically Signed: Jose Centeno MD at 12:50 EDT ,
== END | disposition home or self-care (01) ==
LOC: US 10:52
PROVIDERS: PCP Family Medicine; Referring Provider Obstetrics & Gynecology; Visit Provider Obstetrics & Gynecology
DX: O26.30 Retained intrauterine contraceptive device in pregnancy, unspecified trimester (principal); Z3A.00 Weeks of gestation of pregnancy not specified
CPT/HCPCS: 76817

== ENCOUNTER → 2022-10-29 | Outpatient (CLI) | payer MEDICAID, SELFPAY ==
[2022-11-02 21:07] LABS: Chlamydia By Nucleic Acid AMP Negative (Negative); Gonococcus By Nucleic Acid AMP Negative (Negative)
== END | disposition home or self-care (01) ==
PROVIDERS: PCP Family Medicine; Visit Provider Obstetrics & Gynecology
DX: O26.30 Retained intrauterine contraceptive device in pregnancy, unspecified trimester (principal); Z3A.00 Weeks of gestation of pregnancy not specified
CPT/HCPCS: 87077; 87086; 87088; 87186; 87491; 87591

== ENCOUNTER → 2022-11-04 | Outpatient (CLI) | payer MEDICAID, SELFPAY ==
--- NOTE | 2022-11-04 12:31 | US_ITS ---
INDICATION: thyromegaly EXAMINATION: Ultrasound US Thyroid (eg thyroid, parathyroid, parotid) TECHNIQUE: Arreaga scale and color doppler imaging was performed of the thyroid gland. COMPARISON: None. FINDINGS: RIGHT THYROID LOBE: 4.8 x 1.9 x 1.0 cm. Homogeneous echotexture with normal vascularity. [No thyroid nodules are present. LEFT THYROID LOBE: 4.9 x 2.0 x 1.6 cm. Homogeneous echotexture with normal vascularity. [No thyroid nodules are present. Benign-appearing nonenlarged lymph node is noted in the left neck. ISTHMUS: 0.4 cm. No thyroid nodules are present. US/Thyroid IMPRESSION: Negative thyroid ultrasound examination. Electronically Signed: Rik Osorio DO at 8:15 EDT ,
== END | disposition home or self-care (01) ==
LOC: US 12:30
PROVIDERS: PCP Family Medicine; Referring Provider Obstetrics & Gynecology; Visit Provider Obstetrics & Gynecology
DX: O26.30 Retained intrauterine contraceptive device in pregnancy, unspecified trimester (principal); E01.0 Iodine-deficiency related diffuse (endemic) goiter; Z3A.00 Weeks of gestation of pregnancy not specified; O99.280 Endocrine, nutritional and metabolic diseases complicating pregnancy, unspecified trimester
CPT/HCPCS: 76536

== ENCOUNTER → 2022-11-05 | Outpatient (CLI) | payer MEDICAID, SELFPAY ==
[2022-11-05 11:10] LABS: Absolute Neutrophil Count 6.1 X10^3/uL (2.0-7.7); Basophil# 0.02 X10^3/uL; Basophil% 0.2 % (0-1); Eosinophil# 0.05 X10^3/uL; Eosinophils% 0.6 % (0-5); Hematocrit 38.8 % (37-47); Hemoglobin 13.4 g/dL (12.0-15.0); Lymphocyte % 14.9 % (19-41); Mean Corp Hgb Conc 34.5 g/dL (32-36); Mean Corpuscular Hgb 29.6 pg (27.0-32.0); Mean Corpuscular Volume 85.7 fL (81-99); Mean Platelet Vol. 9.2 fl (6.2-12.0); Monocyte# 0.62 X10^3/uL; Monocyte% 7.7 % (0-10); NRBC Flagged by Analyzer 0 % (0-5); Neutrophil # 6.13 X10^3/uL (2.7-7.7); Platelet Count 187 K/mm3 (150-450); RBC Distribution Width SD 37.2 fl (35.1-43.9); Red Blood Count 4.53 M/mm3 (4.2-5.4); White Blood Count 8.1 K/mm3 (4.4-11.0)
[2022-11-05 11:35] LABS: T4 Free Direct 0.85 ng/dL (0.76-1.46)
[2022-11-05 12:07] LABS: NATERA MAILED SPECIMEN
[2022-11-05 12:11] LABS: HIV - WCH Non-Reactive (Nonreactive); Hepatitis B Surface Antigen Non-Reactive (Nonreactive); Hepatitis C Antibody Non-Reactive (Nonreactive); Rubella IgG Reactive (Nonreactive); Syphilis Antibodies Non-reactive
[2022-11-06 04:07] LABS: Thyroid Peroxidase AB 17 IU/mL (0-34)
== END | disposition home or self-care (01) ==
PROVIDERS: PCP Family Medicine; Referring Provider Obstetrics & Gynecology; Visit Provider Obstetrics & Gynecology
DX: O26.30 Retained intrauterine contraceptive device in pregnancy, unspecified trimester (principal); O09.521 Supervision of elderly multigravida, first trimester; Z31.430 Encounter of female for testing for genetic disease carrier status for procreative management; Z3A.00 Weeks of gestation of pregnancy not specified
CPT/HCPCS: 36415; 84439; 84443; 85025; 86376; 86703; 86762; 86780; 86803; 86850; 86900; 86901; 87340

== ENCOUNTER 2022-11-06 03:18 | Emergency (ER) | payer MEDICAID, SELFPAY ==
[2022-11-06 03:18] VITALS: BP 139/61; PULSE 83; RESP 17; TEMP 36.4; O2SAT 96; BMI 36.8
--- NOTE | 2022-11-06 03:29 | EDS_ITS ---
HPI HPI - Female History of Present Illness Chief Complaint: Vag Bld, Preg Detail of Chief Complaint: with vaginal bleeding. Informant: patient Bleeding Issue: Positive for Vaginal bleeding and Passing clots Onset: Today and Yesterday Context: Gradual Onset Timing: Intermittent Current Severity: Mild Maximum Severity: Mild Associated Symptoms Associated Symptoms: Negative for Dysuria, Frequency or Urgency Test: Positive Sexually: Positive for Active Control: No control P: 2 Ab: 0 Narrative Narrative: 36-year-old female G2, P2 with that being twins Ab0. Currently is at 9 to 10 weeks. Started having vaginal spotting yesterday was seen by her ECHOCARDIOGRAPH TECHNICIAN Dr. Emerald Morris in the office yesterday. Ultrasound was unremarkable. Patient's had prior ultrasounds this showing a single live IUP at 8 weeks and 4 days on October 28. Her blood type is a positive. Her due date is 06/03/2023. She has had a prior . She is concerned because the bleeding is heavier. She denies any dysuria. No significant pain. No fever. Prior similar symptoms: No Recent Illness/Hospitalization: No PFSH PFSH Medical History Abnormal bruising Bilateral breast lump Bite by animal Fatigue History of edema History of stress test Marijuana use Migraine headache Normal Holter exam Smoker Wears dentures Wears glasses Home Medications vitamin #56-iron 35 mg and 5 mg-folic acid 1 mg-dha capsule 1 cap PO QHS #30 caps 10/29/22 [Rx Last Taken Unknown] Allergy/AdvReac Type Severity Reaction Status Date / Time No Known Allergies Allergy Verified 11/06/22 03:21 Surgical History History of History of tonsillectomy and adenoidectomy Social History Smoking Status: Current every day smoker tobacco type: cigarettes alcohol intake: current details: social substance use type: does not use caffeine: Yes what type of physical activity do you participate in: walking frequency: 1-2 times per week seatbelt use: always do you feel safe at home: Yes ROS ROS ED ROS Narrative No recent illness. Vaginal bleeding. Review of Systems ROS Unobtainable: Denies due to encephalopathy Constitutional Constitutional ED: Denies chills Eyes Eyes: Denies blurry vision ENT ENT ED: Denies ear pain Cardiovascular Cardiovascular: Denies chest pain Respiratory/Chest Respiratory/Chest: Denies cough Gastrointestinal Gastrointestinal: Denies abdominal pain Genitourinary Genitourinary ED: Denies dysuria Musculoskeletal Musculoskeletal: Denies arthralgias Integumentary Denies abscess Neurologic Neurologic: Denies headache(s) Psychiatric Psychiatric: Denies anxiety Endocrine Endocrinology: Denies heat intolerance Hematologic/Lymphatic Hematologic/Lymphatic: Denies easy bleeding Allergic/Immunologic Allergic/Immunologic ED: Denies mouth swelling EXAM Physical Exam Narrative Exam Narrative: 36-year-old female no acute distress. Vital signs stable afebrile. Blood pressure 139/61. She does not look septic toxic. No distress. HEENT exam unremarkable. Lungs clear. Heart regular rhythm. Abdomen soft nontender, nondistended normal bowel sounds no peritoneal signs. Moving all 4 extremities. Calves nontender without edema or cords. Neurologically she is awake alert with no focal motor deficits. Benign exam. Repeat exam patient is doing well. Pelvic exam only showed small clots. Not heavy bleeding. Transabdominal ultrasound done by myself I did not see an obvious heartbeat at this time. I explained that to the patient but told her she would need to formal ultrasound done by either one of the OBs or the tractor trailer moving van driver technicians. She was given the option to stay and have 1 done at 7 AM or follow-up with her office. She has children and get off to school this morning she prefer to go home and follow-up with her office. Dr. Trudy Dwyer had denied discussed the patient's care. They will follow-up her up in the office this morning. Const Vital Signs: 11/06/22 03:18 Temperature 97.5 F L Temperature Source Temporal Pulse Rate 83 Respiratory Rate 17 Blood Pressure 139/61 H Blood Pressure Mean 87 Pulse Ox 96 Oxygen Delivery Method Room Air Positive well nourished and well developed; Negative for cachectic, contractures or unkempt General Appearance ED: well developed and NAD; Negative for unkempt, cachectic, contractures or pallor Nutritional Appearance: Negative for cachectic HEENT Reports moist mucous membranes Negative for trauma or tenderness Eyes PERRL and EOMs intact bilaterally General Eye ED: Negative for pale conjunctiva, scleral icterus or other Neck no lymphadenopathy, supple and no JVD Thyroid: Negative for tender Lymph Lymphatic: Negative for other Chest Wall inspection of chest normal and palpation of chest normal Chest: Negative for other Resp normal respiratory effort and clear to auscultation bilaterally Effort and Inspection: Negative for pain with movement Auscultation: Negative for rales, rhonchi or wheezes Cardio regular rate, regular rhythm, S1 normal heart sound, no murmurs and no JVD Rate: Negative for bradycardia or tachycardic Rhythm: Negative for abnormal rhythm GI normal to inspection, nondistended, normoactive bowel sounds, soft to palpation, non-tender, non-distended and no masses Auscultation: normoactive bowel sounds Palpation: Negative for tender or guarding Narrative: Pelvic exam done female nurse present in room. Speculum exam small clots coming from the vagina. No heavy bleeding at this time. Mild uterine tenderness. No adnexal tenderness or masses appreciated. No discharge. Back/Spine no CVA tenderness General Back: Negative for CVA tenderness Cervical Spine: Negative for cervical spine tenderness Thoracic Spine / Upper Back: Negative for thoracic spinal tenderness Lumbar Spine / Lower Back: Negative for lumbar spinal tenderness Sacrum: Negative for other Extremity normal to inspection and full ROM General Extremety ED: Negative for edema or tenderness General Extremity: Negative for edema Neuro oriented x3 and CN's II-XII intact bilaterally Sensorium / Orientation: alert, oriented to person, oriented to place and oriented to time; Negative for confused, lethargic or stuporous Motor Exam: strength 5/5 throughout Psych mental status grossly normal Appearance: Negative for unkempt Attitude: No agitated Speech: No other Mood & Affect: Negative for depressed, anxious or tearful Skin no rashes or lesions noted and no wounds General Skin Exam: Negative for jaundice or pallor Rashes: No rashes noted Trauma: Negative for other MDM MDM MDM Narrative Medical decision making narrative: First trimester female with vaginal bleeding. She already has a known blood type of A+. She had an ultrasound done in the last 24 hours which showed a single live IUP. Concern is for threatened miscarriage. Pelvic exam to be done. Repeat CBC to compare to the one done on . History & Record Review Discussion w/independent historian: Patient Lab Data Attestation: I reviewed the patient's lab results. Lab results narrative: CBC shows normal white count 7.7. H&H 13.2 and 37.8. Platelets 165. CBC is normal. No significant change from the CBC that was done on . At that time her hemoglobin was 13.4. Labs: Laboratory Results - last 24 hr 11/06/22 03:30 WBC 7.7 RBC 4.42 Hgb 13.2 Hct 37.8 MCV 85.5 MCH 29.9 MCHC 34.9 RDW Std Deviation 37.0 RDW Coeff of Criselda 11.9 Plt Count 165 MPV 9.4 Discharge Plan Triage Chief Complaint: Vag Bld, Preg ED Provider: Fer Lauren Dx/Rx/DC Orders Clinical Impression: Vaginal bleeding, Miscarriage, threatened, early , First trimester Instructions: ED Possible Miscarriage ... Prescriptions: No Action PNV #[id number] acid-dha 35 mg iron-5 mg iron-1 mg capsule 1 cap PO QHS Qty: 30 12RF Primary Care Provider: Giuseppe Chin Referrals: Giuseppe Chin MD [Primary Care Provider] - Yeni Garcia DO [Med Staff - Active Staff] - As soon as possible (I spoke to Dr. Jacky Weinstein. They will see you in the office this morning. Call around 8:00 and you can make arrangements. They will fitted her on your schedule. 9 AM would be fine.) Activity Restrictions/Additional Instructions: Tylenol for cramping and pain. Call and follow-up with Dr. Yeni Morris's office this morning. They will get you in sometime between 8 and 10 AM if that fits your schedule to reevaluate you and do a formal pelvic ultrasound to determine if this is just a threatened miscarriage or if you are actually having a miscarriage. Unless the bleeding gets a lot heavier you can wait to follow-up with their office. If you start passing a lot larger amounts of blood with much larger clots she can return to the emergency department. Disposition Disposition: Home, Self Care
[2022-11-06 03:38] LABS: Hematocrit 37.8 % (37-47); Hemoglobin 13.2 g/dL (12.0-15.0); Mean Corp Hgb Conc 34.9 g/dL (32-36); Mean Corpuscular Hgb 29.9 pg (27.0-32.0); Mean Corpuscular Volume 85.5 fL (81-99); Mean Platelet Vol. 9.4 fl (6.2-12.0); Platelet Count 165 K/mm3 (150-450); RBC Distribution Width CV 11.9 % (11.6-14.6); Red Blood Count 4.42 M/mm3 (4.2-5.4); White Blood Count 7.7 K/mm3 (4.4-11.0)
[2022-11-06] MEDS: Acetaminophen 500 MG Tablet 1000 MG PO (03:46)
[2022-11-06 04:32] VITALS: BP 128/62; PULSE 80; RESP 16
== END 2022-11-06 04:32 | disposition home or self-care (01) ==
PROVIDERS: Emergency Provider Emergency Medicine; PCP Family Medicine; Visit Provider Emergency Medicine
DX: O20.0 Threatened abortion (principal); O09.521 Supervision of elderly multigravida, first trimester; Z3A.10 10 weeks gestation of pregnancy; O99.331 Smoking (tobacco) complicating pregnancy, first trimester; F17.210 Nicotine dependence, cigarettes, uncomplicated; O34.219 Maternal care for unspecified type scar from previous cesarean delivery
CPT/HCPCS: 85027; 99283

== ENCOUNTER 2022-11-06 07:01 | Emergency (ER) | payer MEDICAID, SELFPAY ==
[2022-11-06 07:02] VITALS: BP 104/49; PULSE 70; RESP 14; TEMP 36.6; O2SAT 99; BMI 35.4
--- NOTE | 2022-11-06 07:16 | US_ITS ---
INDICATION: PAIN, BLEEDING EXAMINATION: Ultrasound US OB Less Than 14 Weeks TECHNIQUE: Transabdominal pelvic ultrasound was performed. Grayscale, spectral waveform, and color flow Doppler evaluation of the adnexa. COMPARISON: Prior study dated: October 28, 2022 LMP: [Unknown Beta-hCG: Unknown FINDINGS: UTERUS: 16.3 x 6.1 x 7.0 cm. The gestational sac is now in an abnormal location within the lower uterine segment. The cervix is open. The crown-rump length measures 2.71 cm corresponding to gestational age of 9 weeks and 2 days. There is no cardiac activity identified. RIGHT OVARY: 2.8 x 2.0 x 1.6 cm. Normal. LEFT OVARY: 2.9 x 1.7 x 3.0 cm. Normal. FREE FLUID: None. US/Init OB < 14Wks US IMPRESSION: Abnormal low lying gestational sac within the lower uterine segment associated with no cardiac activity consistent with a failed . Electronically Signed: Nani Small MD at 8:56 EDT ,
--- NOTE | 2022-11-06 07:17 | ED.VIS.FEGU ---
HPI HPI - Female History of Present Illness Chief Complaint: Vag Bld, Preg Informant: patient Narrative Narrative: Patient is 9 or 10 weeks and has been having lower abdominal nonlateralizing pain/cramping and vaginal bleeding for the past 24 hours or so, she was just seen here in the emergency department discharged about 3 hours ago for the same thing, returning because the pain is severe and Tylenol is not helping. She states it comes in waves and she has been passing clots. Since being discharged 3 hours ago, she has soaked 4 pads. She felt like she was going to pass out earlier and has been nauseated. No other new symptoms. She was scheduled to be seen in the office today, a couple hours from now. She has had prior ultrasound showing intrauterine and her blood type has been reviewed and is Rh+. [facility] Medical History Abnormal bruising Bilateral breast lump Bite by animal Fatigue History of edema History of stress test Marijuana use Migraine headache Normal Holter exam Smoker Wears dentures Wears glasses Home Medications vitamin #56-iron 35 mg and 5 mg-folic acid 1 mg-dha capsule 1 cap PO QHS #30 caps 10/29/22 [Rx Last Taken Unknown] Allergy/AdvReac Type Severity Reaction Status Date / Time No Known Allergies Allergy Verified 11/06/22 07:02 Surgical History History of History of tonsillectomy and adenoidectomy Social History Smoking Status: Current every day smoker tobacco type: cigarettes alcohol intake: current details: social substance use type: does not use caffeine: Yes what type of physical activity do you participate in: walking frequency: 1-2 times per week seatbelt use: always do you feel safe at home: Yes ROS ROS ED Constitutional Constitutional ED: Reports malaise; Denies chills or fever(s) Eyes Eyes: Denies change in vision or diplopia ENT ENT ED: Denies rhinorrhea or sore throat Cardiovascular Cardiovascular: Reports lightheadedness and nausea; Denies chest pain, palpitations or syncope Respiratory/Chest Respiratory/Chest: Denies cough or dyspnea Gastrointestinal Gastrointestinal: Reports abdominal pain and nausea; Denies diarrhea or vomiting Genitourinary Genitourinary ED: Reports as per HPI; Denies dysuria or hematuria Musculoskeletal Musculoskeletal: Denies arthralgias or neck pain Integumentary Denies abscess or rash Neurologic Neurologic: Denies headache(s), paresthesias or weakness Psychiatric Psychiatric: Denies anxiety or suicidal thoughts EXAM Physical Exam Const Vital Signs: 11/06/22 07:02 11/06/22 10:44 11/06/22 12:15 Temperature 98 F Temperature Source Temporal Pulse Rate 70 71 68 Respiratory Rate 14 16 16 Blood Pressure 104/49 L 95/58 L 97/44 L Blood Pressure Mean 67 70 61 Pulse Ox 99 99 99 Oxygen Delivery Method Room Air Room Air Positive well nourished and well developed Constitutional Narrative: Appears somewhat pallorous like she does not feel well but keenly alert General Appearance ED: well developed and NAD HEENT Reports moist mucous membranes normocephalic and atraumatic Eyes PERRL and EOMs intact bilaterally Neck full ROM and supple Resp normal respiratory effort and clear to auscultation bilaterally Cardio regular rate, regular rhythm and no murmurs GI non-distended GI Narrative: Lower abdominal tenderness worse in the suprapubic area no guarding or rebound. Auscultation: normoactive bowel sounds Palpation: soft Back/Spine no CVA tenderness General Back: other FROM Extremity normal to inspection General Extremety ED: Negative for edema, pulses abnormal or tenderness General Extremity: Negative for edema or pulses abnormal Neuro oriented x3, CN's II-XII intact bilaterally and no sensory deficits noted Sensorium / Orientation: awake and alert Motor Exam: strength 5/5 throughout Psych mental status grossly normal Skin no rashes or lesions noted and no wounds MDM MDM MDM Narrative Medical decision making narrative: Given the patient's bleeding I repeated her H&H and it is stable. Vital signs of remained stable. She was amenable to getting some morphine for the pain, which was given and really helped her feel better in addition to Zofran and some IV fluids. Sent her for transvaginal ultrasound when they arrived, and after discussing with the electro mechanical solar technician, she appears to have loss of heart tones and appears to be miscarrying. Discussed with Dr. Sanches, who saw the patient in emergency department. In examining the patient and reviewing the ultrasound, the fetus was in the process of being passed and was in the cervix, and she helped to remove it, completing the and placing Cytotec. We observe the patient for the next 3 or so hours in the emergency department, watching for hemorrhage. She had mild bleeding, her pain started coming back after the morphine which really helped initially, but she has had no hemorrhage and has remained clinically and hemodynamically stable. Discussed again with Dr. aWldrop, she is comfortable with her going home will prescribe Percocet for her, I will give her 1 here prior to discharge, and she will follow-up after this week. Lab Data Attestation: I reviewed the patient's lab results. Labs: Laboratory Results - last 24 hr 11/06/22 07:25 Hgb 13.0 Hct 38.2 Radiography Diagnostic Testing: Clinical Impression(s) from Imaging Studies Obstetrics Ultrasound 11/06/22 07:16 IMPRESSION: Abnormal low lying gestational sac within the lower uterine segment associated with no cardiac activity consistent with a failed . Electronically Signed: Nani Small MD at 8:56 EDT , Management Discussion w/another healthcare provider: Web Content & Social Media Manager Discharge Plan Triage Chief Complaint: Vag Bld, Preg Other Complaint: Vag Bleeding ED Provider: Gustavo Rodriguez Dx/Rx/DC Orders Clinical Impression: , spontaneous complete Instructions: Miscarriage Dc Prescriptions: No Action PNV #[id number] acid-dha 35 mg iron-5 mg iron-1 mg capsule 1 cap PO QHS Qty: 30 12RF Primary Care Provider: Giuseppe Chin Referrals: Giuseppe Chin MD [Primary Care Provider] - Yeni Garcia DO [Med Staff - Active Staff] - (next week - call for appt) Disposition Disposition: Home, Self Care
[2022-11-06] MEDS: Morphine 4 MG/ML Syringe IV ×2 (07:30→12:38)
[2022-11-06] MEDS: Ondansetron 4 MG/2 ML Vial IV (07:30)
[2022-11-06] MEDS: 0.9% Normal Saline 1,000 ML 1000 ML IV (07:30)
[2022-11-06 07:34] LABS: Hematocrit 38.2 % (37-47)
--- NOTE | 2022-11-06 09:15 | POC_PTH ---
PATIENT: ASIA DALTON LOC: ED U#:[id number] AGE/SX: 36/F ROOM: RE11/06/[address]: Dr. Gustavo Rodriguez MD : 1985 BED: DIS: 11/06/2022 SPEC #: [id number] RECD: 11/06/22 11:25 STATUS: INES BELINDA #: [id number] DANIKA: 11/06/22 09:[address]: Yeni Garcia DEPT: SURGICAL PATHOLOGY RECD BY: Flores Farfan ENTERED: 11/06/22 11:27 SP TYPE: PROD CONC OTHR DR: MD Dr. Giuseppe Galvan MD Tissues: Product of conception, NOS Procedures: Surgery Specimen Level IV HEADER OPERATION: Not noted PRE-OP DIAGNOSIS: Cramping TISSUE SUBMITTED: Products of conception MICROSCOPIC DIAGNOSIS Products of conception: Placental disc - Immature placental tissue (24 gm). Umbilical cord - three blood vessels, no pathologic diagnosis. Membranes - no pathologic diagnosis. tissue (2 gm). YANELIS:bryce 11/09/2022 MICROSCOPIC DESCRIPTION Slides are reviewed. GROSS DESCRIPTION Received in fixative is one container labeled with the patient's name and designated products of conception. The specimen consists of placental tissue including amniotic sac and fetus measuring 9.0 x 5.0 x 2.5 cm and weighing 41.2 gm. The fetus weighs 2 gm and measures crown to rump 3.0 cm. All four limbs are identified. No obvious external abnormalities are noted. The umbilical cord measures 2.5 cm in length and 0.1 cm in diameter. The placental tissue weighs 24 gm and measures 6.0 x 5.5 x 1.0 cm. surface appears unremarkable. The umbilical cord is centrally inserted. Sections of placental tissue do not reveal any mass lesion and it is pink, red in color. Also present in the container are multiple blood clots measuring in aggregate 4.0 x 4.0 x 1.0 cm and weighing 12 gm. Kiln [employer] Builder sections are submitted in five cassettes as follows: 1 - umbilical cord, 2 - membranes, 3 & 4 - placental tissue including maternal and surfaces, 5 - tissue. / YANELIS:bryce 11/06/2022 TC:5 CPT: 71694 x2
--- NOTE | 2022-11-06 09:16 | CON.PCM.OB_ITS ---
Assessment & Plan (1) Incomplete : (2) with IUD in place, antepartum: COMMENT: IUD was in cervix and difficult to remove. follow up scan shows a tiny piece wedged deep in the cervix. PLAN: plan to give 600 mg cytotec po now and observe for 4-6 hours. if no clotting or hemorrhage may go home. otherwise, if bleeding starts and becomes heavy will need a d&C to remove the remaining 2 cm of clot and debris. HPI Consult Data Date of Consult: 11/06/22 HPI Narrative HPI Narrative: ASIA DALTON, is a 36 y/o who presents to [facility] ER with the complaint of passing clots and severe pain. ultrasound shows a 9 week 6 day fetus in the cervix without heart tones. She has a known chip of an IUD in the cervix and a previously documented subchorionic hemorrhage. She is tearful currently but states that her pain is well controlled with morphine. [facility] Medical History Abnormal bruising Bilateral breast lump Bite by animal Fatigue History of edema History of stress test Marijuana use Migraine headache Normal Holter exam Smoker Wears dentures Wears glasses Home Medications vitamin #56-iron 35 mg and 5 mg-folic acid 1 mg-dha capsule 1 cap PO QHS #30 caps 10/29/22 [Rx Last Taken Unknown] Allergy/AdvReac Type Severity Reaction Status Date / Time No Known Allergies Allergy Verified 11/06/22 07:02 Surgical History History of History of tonsillectomy and adenoidectomy Social History Smoking Status: Current every day smoker tobacco type: cigarettes alcohol intake: current details: social substance use type: does not use caffeine: Yes what type of physical activity do you participate in: walking frequency: 1-2 times per week seatbelt use: always do you feel safe at home: Yes Visit Details Expected Delivery Route/Plan rltcs Plans Covid status: [] Flu vaccine: [] Tdap vaccine: [] Rhogam: [] LARC form signed: [] Problem list reviewed and updated with the most current plan of care details and appropriate orders placed. Relevant counseling for the gestational age provided. Continue routine care and follow up unless otherwise noted in visit notes/problem list details OB Flowsheet Initial Weight: Not Recorded Date -?-?-?-?-?-?-?-?-?-?-?-?- EGA Weight BP Urine Prot -?-?-?-?-?-?-?-?-?-?-?-?- Glucose FHR FuHt Pres Dilation -?-?-?-?-?-?-?-?-?-?-?-?- Effaced St Visit Note 10/29/22 -?-?-?-?-?-?-?-?-?-?-?-?- 9w 0d 205 lb 106/44 -?-?-?-?-?-?-?-?-?-?--?-?- -?-?-?-?-?-?-?-?-?-?-?-?- SM- no vb nury de la cruz reviewed US FHT seen yesterday 11/05/22 -?-?-?-?-?-?-?-?-?-?-?-?- 10w 0d 206 lb 6 oz 128/76 128/76 Negative -?-?-?-?-?-?-?-?-?-?-?-?- Negative 160 -?-?-?-?-?-?-?-?-?-?-?-?- -Work for brig ht red vaginal bleeding. US performed per Dr Garcia confirming live IUP. Discussed risk of SAB due to partial remnant of IUD. Reviewed bleeding precautions. Vital Signs Vital Signs Vital Signs: 11/06/22 07:02 Temperature 98 F Temperature Source Temporal Pulse Rate 70 Respiratory Rate 14 Blood Pressure 104/49 L Blood Pressure Mean 67 Pulse Ox 99 Oxygen Delivery Method Room Air Weight Weight: 206 lb 9.17 oz Body Mass Index (BMI) 35.4 ROS Constitutional Constitutional: Reports malaise; Denies chills or fever(s) Eyes Eyes: Denies change in vision or diplopia ENT HEENT: Denies rhinorrhea or sore throat Cardiovascular Cardiovascular: Reports lightheadedness and nausea; Denies chest pain, palpitations or syncope Respiratory/Chest Respiratory/Chest: Denies cough or dyspnea Gastrointestinal Gastrointestinal: Reports abdominal pain and nausea; Denies diarrhea or vomiting Genitourinary Genitourinary: Reports as per HPI; Denies dysuria or hematuria Musculoskeletal Musculoskeletal: Denies arthralgias or neck pain Integumentary Integumentary: Denies rash Neurologic Neurologic: Denies headache(s), paresthesias or weakness Psychiatric Psychiatric: Denies anxiety or suicidal thoughts Physical Exam Const alert, oriented x3 and no apparent distress external exam normal Narrative: Speculum was placed in the vagina and membranes are apparent at the cervix. The products were gently teased out of the cervix and scant bleeding was present. The gestational sac, fetus, and placenta delivred completely. bedside ultrasound was performed showing 2 cm of debris and clot in the uterus but no other signs of retained products. Lab / Micro Data 11/06/22 07:25 Labs: Laboratory Results - last 24 hr 11/06/22 07:25: Hgb 13.0, Hct 38.2 Radiology Impression Obstetrics Ultrasound 11/06/22 07:16 IMPRESSION: Abnormal low lying gestational sac within the lower uterine segment associated with no cardiac activity consistent with a failed . Electronically Signed: Nani Small MD at 8:56 EDT ,
[2022-11-06] MEDS: miSOPROStol 200 MCG Tablet 600 MCG PO (09:28)
[2022-11-06 09:37] LABS: Pathology Specimen OB SEE PATHOLOGY REPORT
[2022-11-06 10:44] VITALS: BP 95/58; PULSE 71; RESP 16; O2SAT 99
[2022-11-06 12:15] VITALS: BP 97/44; PULSE 68; RESP 16; O2SAT 99
--- NOTE | 2022-11-06 12:38 | CM.ED ---
Social Work Patient referred to SW due to miscarriage in the ED. Pt passed fetus with assistance of blanket winder helper physician in the ED. SW introduced self and role to patient. Patient reports she was 10 weeks . SW provided emotional support. Patient expressed her feelings at this time and discussed events with and miscarriage. Pt reports she has 8.5 year old twin daughters and had not considered having more children. However, patient got while having an IUD and some of the IUD was embedded in the cervix. Pt reports grief and feelings of guilt. SW provided psychoeducation on grief and provided resources on miscarriage and child loss. SW encouraged patient to lean on family and friends for support. Pt expressed concerns with discussing loss with her twins. SW provided information on age appropriate ways to address this loss and also resources available regarding children and grief. Patient does not have family at bedside due to needing assistance with childcare. Pt reports FOB is not able to come currently but will be available later for support. SW additionally gave local counseling resources. Patient somewhat tearful but does report feeling like it will be harder when she arrives home. Pt encouraged to have support from roommate which is her [id number] and currently helping with her children. Patient thanked SW for resources and support. SW available if patient presents with more needs while in ED observation. Annalee Zendejas BIOMEDICAL ENGINEERING SUPERVISOR, IMMIGRATION CASE WORKER
[2022-11-06 13:12] VITALS: BP 96/54; PULSE 70; RESP 16; TEMP 36.8; O2SAT 98
== END 2022-11-06 13:13 | disposition home or self-care (01) ==
PROVIDERS: Obstetrics & Gynecology; Emergency Provider Emergency Medicine; PCP Family Medicine; Visit Provider Emergency Medicine
DX: O03.4 Incomplete spontaneous abortion without complication (principal); O34.219 Maternal care for unspecified type scar from previous cesarean delivery; O26.31 Retained intrauterine contraceptive device in pregnancy, first trimester; R11.0 Nausea; Z3A.09 9 weeks gestation of pregnancy; O09.521 Supervision of elderly multigravida, first trimester; O99.331 Smoking (tobacco) complicating pregnancy, first trimester; F17.210 Nicotine dependence, cigarettes, uncomplicated
CPT/HCPCS: 76801; 85014; 85018; 85027; 88305; 96361; 96374; 96375; 96376; 99283; J7030; A4216; J2405

== ENCOUNTER → 2022-11-13 | Outpatient (CLI) | payer MEDICAID, SELFPAY ==
[2022-11-13 12:04] LABS: Absolute Lymphocyte Count 1.98 X10^3/uL (0.83-4.51); Absolute Neutrophil Count 3.4 X10^3/uL (2.0-7.7); Basophil# 0.04 X10^3/uL; Basophil% 0.7 % (0-1); Eosinophil# 0.12 X10^3/uL; Hematocrit 37.6 % (37-47); Hemoglobin 12.6 g/dL (12.0-15.0); Lymphocyte # 1.98 X10^3/ul (0.83-4.51); Lymphocyte % 32.4 % (19-41); Mean Corp Hgb Conc 33.5 g/dL (32-36); Mean Corpuscular Hgb 29.4 pg (27.0-32.0); Mean Corpuscular Volume 87.9 fL (81-99); Mean Platelet Vol. 8.5 fl (6.2-12.0); Monocyte# 0.58 X10^3/uL; Monocyte% 9.5 % (0-10); NRBC Flagged by Analyzer 0 % (0-5); Neutrophil # 3.35 X10^3/uL (2.7-7.7); Neutrophil % 54.6 % (47-70); Platelet Count 321 K/mm3 (150-450); RBC Distribution Width SD 38.3 fl (35.1-43.9); Red Blood Count 4.28 M/mm3 (4.2-5.4); White Blood Count 6.1 K/mm3 (4.4-11.0)
== END | disposition home or self-care (01) ==
LOC: PAVLAB 11:48
PROVIDERS: PCP Family Medicine; Referring Provider Obstetrics & Gynecology; Visit Provider Obstetrics & Gynecology
DX: F53.0 Postpartum depression (principal)
CPT/HCPCS: 36415; 85025

== ENCOUNTER → 2022-11-20 | Outpatient (CLI) | payer MEDICAID, SELFPAY ==
--- NOTE | 2022-11-20 15:56 | US_ITS ---
EXAM: US PELVIS TRANSVAGINAL CLINICAL INDICATION: IUD piece remains TECHNIQUE: Transvaginal pelvic ultrasound was performed with grayscale and color Doppler imaging. Transvaginal imaging was used for better evaluation of the endometrium and adnexa. COMPARISON: 11/06/2022 FINDINGS: UTERUS/CERVIX: There are 2 nonspecific echogenic foci within the endometrium each measuring approximately 0.2 cm. Endometrium is heterogenous and mildly thickened. Anteverted. There is no uterine mass. The uterus measures 11.2 x 4.2 x 5.7 cm. The endometrial stripe measures 1.5 cm in thickness. RIGHT OVARY: No significant abnormality. Blood flow is present in the right ovary. The right ovary measures 3.9 x 2.1 x 2.7 cm. LEFT OVARY: No significant abnormality. Blood flow is present in the left ovary. The left ovary measures 3.0 x 2.0 x 2.7 cm. FREE FLUID: None. US/Transvaginal Non- IMPRESSION: There are 2 nonspecific echogenic foci within the endometrium each measuring approximately 0.2 cm. Endometrium is heterogenous and mildly thickened. Correlate clinically. The echogenic foci may be calcifications rather than fragments of an IUD. Electronically Signed: Brodie Guzman DO at 22:34 EDT ,
== END | disposition home or self-care (01) ==
LOC: US 15:55
PROVIDERS: PCP Family Medicine; Referring Provider Obstetrics & Gynecology; Visit Provider Obstetrics & Gynecology
DX: O26.30 Retained intrauterine contraceptive device in pregnancy, unspecified trimester (principal); Z3A.00 Weeks of gestation of pregnancy not specified
CPT/HCPCS: 76830

== ENCOUNTER 2022-12-06 12:43 | Emergency (ER) | payer MEDICAID, SELFPAY ==
[2022-12-06 12:45] VITALS: BP 107/63; PULSE 71; RESP 12; TEMP 35.8; O2SAT 97; BMI 35.7
--- NOTE | 2022-12-06 12:57 | RAD_ITS ---
INDICATION: Swelling EXAMINATION/TECHNIQUE: X-RAY - LEFT XR Knee Complete 4 Views or More 4 VIEWS COMPARISON: No relevant prior comparison study available FINDINGS: SOFT TISSUES: No soft tissue swelling or gas. No radiopaque foreign body. BONES/JOINTS: No acute fracture or subluxation.. Normal alignment. Minimal narrowing of the medial joint compartment.. No sclerotic or destructive changes observed. RAD/Knee 4 or More Views IMPRESSION: No acute osseous changes. Electronically Signed: Shai Montoya MD at 13:15 EDT ,
--- NOTE | 2022-12-06 13:16 | EX.ED.DYSGE1 ---
HPI <MAXWELL Mendez - Last Filed: 12/06/22 13:20> History of Present Illness Chief Complaint: General Illness Narrative Narrative: Patient is 36-year-old female with history of anxiety, depression presents to the emergency department with pain behind the left knee concerning for a blood clot. Patient states the pain started yesterday, she has family history of blood clots, she is on control and she is here for evaluation. She did see urgent care who referred her here. Patient denies any pain, states she has some mild bruising to her upper leg. Denies any history of blood clots, is currently on any blood thinning medicine. Patient denies any injury, long car rides, long flights. PFSH <MAXWELL Mendez - Last Filed: 12/06/22 13:20> PFSH Medical History Abnormal bruising Bilateral breast lump Bite by animal Fatigue History of edema History of stress test Marijuana use Migraine headache Normal Holter exam Smoker Wears dentures Wears glasses Home Medications vitamin #56-iron 35 mg and 5 mg-folic acid 1 mg-dha capsule 1 cap PO QHS #30 caps 10/29/22 [Rx Last Taken Unknown] citalopram 20 mg tablet 20 mg PO DAILY #30 tabs 11/13/22 [Rx Last Taken Unknown] norethindrone (contraceptive) 0.35 mg tablet 0.35 mg PO DAILY #28 tabs 11/13/22 [Rx Last Taken Unknown] Allergy/AdvReac Type Severity Reaction Status Date / Time No Known Allergies Allergy Verified 12/06/22 12:44 Surgical History History of History of tonsillectomy and adenoidectomy Social History Smoking Status: Current every day smoker tobacco type: cigarettes alcohol intake: current details: social substance use type: does not use caffeine: Yes what type of physical activity do you participate in: walking frequency: 1-2 times per week seatbelt use: always do you feel safe at home: Yes ROS <MAXWELL Mendez - Last Filed: 12/06/22 13:20> ROS ED ROS Narrative Constitutional: Negative for fever, chills, weight loss, weakness Eyes: Negative for vision loss, vision change, double vision ENT: Negative for any sore throat, ear pain, congestion Cardiovascular: Negative for any chest pain, tightness, palpitations Respiratory: Negative for any cough, sputum production, hemoptysis, dyspnea, dyspnea on exertion, orthopnea Gastrointestinal: Negative for any abdominal pain, nausea, vomiting, diarrhea, constipation, blood in stool, blood in vomit : Negative for any urinary frequency, dysuria, retention, blood in urine Muscle skeletal: Negative for any muscle joint pain, stiffness, myalgias, arthralgias, neck pain, back pain. Positive for left leg pain Neurological: Negative for any headache, syncope, numbness or tingling, dizziness Skin: Negative for any rashes, lumps, itching, abrasions, lacerations Psychiatric: Negative for any depression, anxiety, stress, suicidal ideation, homicidal ideation Hematologic: Negative for any easy bruising, excessive bruising, easy bleeding Allergies: Negative for any eczema, hives, rash EXAM <MAXWELL Mendez - Last Filed: 12/06/22 13:20> Physical Exam Narrative Exam Narrative: Vital signs reviewed. HEET: Head normocephalic atraumatic, TMs clear bilaterally. Posterior pharynx is clear, moist mucous membranes. Nares clear bilaterally. Neck: Supple with no lymphadenopathy or tenderness. No signs of meningismus, negative jolt sign. Cardiac: Regular rate and rhythm no murmurs gallops or rubs, equal peripheral pulses bilaterally. Respiratory: Lungs clear to auscultation bilaterally. No chest tenderness. Abdomen: Soft, nontender, nondistended. No abdominal bruit or pulsatile masses. No hepatosplenomegaly Extremities: Patient has intact extensor mechanism to the left lower extremity. Patient able to flex and extend. Patient does have pain on palpation to the lateral knee as well as to the posterior area however is more to the lateral aspect. There is no pain to the calf, there is no redness, edema. +2 pedal pulse Neuro: Cranial nerves II through XII intact, no focal neurological deficits. Skin: Clean dry and intact with no rash, purpura, petechiae, vesicles or pustules. Backs/flank: No CVA tenderness, no midline spinal tenderness, no deformity. Psych: Normal mood and affect. No SI, HI or acute psychosis. Const Vital Signs: 12/06/22 12:45 12/06/22 12:44 Temperature 96.5 F L Temperature Source Temporal Pulse Rate 71 Respiratory Rate 12 Respiratory Pattern Normal Blood Pressure 107/63 Blood Pressure Mean 77 Pulse Ox 97 Oxygen Delivery Method Room Air <Dr. Raleigh Hill DO - Last Filed: 12/06/22 13:25> Physical Exam Const Vital Signs: 12/06/22 12:45 12/06/22 12:44 Temperature 96.5 F L Temperature Source Temporal Pulse Rate 71 Respiratory Rate 12 Respiratory Pattern Normal Blood Pressure 107/63 Blood Pressure Mean 77 Pulse Ox 97 Oxygen Delivery Method Room Air MDM <MAXWELL Mendez - Last Filed: 12/06/22 13:20> MDM Radiography Diagnostic Testing: Clinical Impression(s) from Imaging Studies Knee X-Ray 12/06/22 12:57 IMPRESSION: No acute osseous changes. Electronically Signed: Shai Montoya MD at 13:15 EDT , Treatment and Re-Evaluation :: Patient appears generally well, patient appears nontoxic, vital signs are stable. Presents to the emergency department with complaints of left knee pain has been ongoing for greater than 24 hours. She is mostly concerned for blood clot. I do have low suspicion for blood clot, I did perform a x-ray of the left knee. All radiologic examinations were read, reviewed by the emergency department attending. From these reads, a plan of care will be put in place. This was unremarkable. However patient is concerned, patient will receive an outpatient prescription to have a venous duplex of the left lower extremity tomorrow. She verbally understands the importance of follow-up. At this time there is no evidence of any red flag signs. There is no neurological focal deficit. She will take ibuprofen and Tylenol for the pain. Patient stable for discharge. <Dr. Raleigh Hill DO - Last Filed: 12/06/22 13:25> MDM Radiography Diagnostic Testing: Clinical Impression(s) from Imaging Studies Knee X-Ray 12/06/22 12:57 IMPRESSION: No acute osseous changes. Electronically Signed: Shai Montoya MD at 13:15 EDT , Treatment and Re-Evaluation :: Patient appears generally well, patient appears nontoxic, vital signs are stable. Presents to the emergency department with complaints of left knee pain has been ongoing for greater than 24 hours. She is mostly concerned for blood clot. I do have low suspicion for blood clot, I did perform a x-ray of the left knee. All radiologic examinations were read, reviewed by the emergency department attending. From these reads, a plan of care will be put in place. This was unremarkable. However patient is concerned, patient will receive an outpatient prescription to have a venous duplex of the left lower extremity tomorrow. She verbally understands the importance of follow-up. At this time there is no evidence of any red flag signs. There is no neurological focal deficit. She will take ibuprofen and Tylenol for the pain. Patient stable for discharge. I have personally performed a face to face assessment of the patient and have reviewed the ROSA Note. I performed a substantive portion of the visit including all aspects of the following. My roberson findings include: History is patient is concerned for possible DVT of the left leg. Patient notes pain over the posterior medial aspect of the left knee. She went to urgent care was referred to the emergency department. She is on norethindrone for control. The patient denies any swelling of the lower leg. She notes some bruising which she feels is atypical of the anterior left thigh. No known direct trauma. No recent trauma or surgery or travel. Exam is tenderness to palpation. No swelling edema or erythema. There is nonspecific mild bruising and at least 3 areas of the left thigh. Distally there is no swelling of the leg. Neurovascular intact Medical Decison Making my interpretation of the plain films of the left knee is no acute fracture. No osteoarthritic changes. No effusion. Clinically I do not feel strongly that this is a DVT. For completeness and because we do not have ultrasound available to us today for DVT patient will be given a prescription for one for tomorrow. Would recommend follow-up with primary care if not improving 10 to 14 days as long as the DVT study is negative. Recommend Motrin ice rest. Discharge Plan Triage Chief Complaint: General Illness ED Midlevel Provider: Erasmo Canchola ED Provider: Raleigh Hill Dx/Rx/DC Orders Clinical Impression: Acute knee pain Instructions: ED Arthralgia, ED Knee Sprain Prescriptions: No Action PNV #[id number] acid-dha 35 mg iron-5 mg iron-1 mg capsule 1 cap PO QHS Qty: 30 12RF citalopram 20 mg tablet 20 mg PO DAILY Qty: 30 12RF norethindrone (contraceptive) 0.35 mg tablet 0.35 mg PO DAILY Qty: 28 12RF Rx Instructions: start day 1 of menstrual cycle Other Ambulatory Orders: Venous Duplex US, Unilateral (Stat) Facility: [facility] - Location: [facility] [place] Ordered By: Erasmo Canchola Primary Care Provider: Giuseppe Chin Referrals: Giuseppe Chin MD [Primary Care Provider] - Activity Restrictions/Additional Instructions: Please follow-up outpatient. You have a prescription for a venous duplex tomorrow, follow the instructions given. Disposition Disposition: Home, Self Care
[2022-12-06 13:29] VITALS: BP 126/78; PULSE 64; RESP 14; TEMP 36.4; O2SAT 99
== END 2022-12-06 13:33 | disposition home or self-care (01) ==
PROVIDERS: Emergency Provider Emergency Medicine; PCP Family Medicine; Visit Provider Emergency Medicine
DX: M25.562 Pain in left knee (principal); F17.210 Nicotine dependence, cigarettes, uncomplicated; Z79.3 Long term (current) use of hormonal contraceptives; F32.A Depression, unspecified; Z79.899 Other long term (current) drug therapy
CPT/HCPCS: 73564; 99282

== ENCOUNTER → 2022-12-17 | Outpatient (CLI) | payer MEDICAID, SELFPAY | END | disposition home or self-care (01) | LOC: LABSPEC 09:46 | PROVIDERS: PCP Family Medicine; Referring Provider Obstetrics & Gynecology; Visit Provider Obstetrics & Gynecology | DX: K58.9 Irritable bowel syndrome, unspecified (principal); F53.0 Postpartum depression | CPT/HCPCS: 87506 ==

== ENCOUNTER 2023-01-19 07:01 | Day surgery (SDC) | payer MEDICAID, SELFPAY ==
--- NOTE | 2023-01-17 14:13 | HP.PCM_ITS ---
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 Is patient in pain?: No Allergies No Known Allergies Allergy (Verified 01/04/23 11:03) Medications vitamin #56-iron 35 mg and 5 mg-folic acid 1 mg-dha capsule 1 cap PO QHS #30 caps 10/29/22 [Rx Confirmed 01/04/23] norethindrone (contraceptive) 0.35 mg tablet 0.35 mg PO DAILY #28 tabs 11/13/22 [Rx Confirmed 01/04/23] citalopram 40 mg tablet 40 mg PO DAILY #30 tabs 01/04/23 [Rx Confirmed 01/04/23] Post menopausal: No Patient : No : No PFSH Medical History Abnormal bruising Bilateral breast lump Bite by animal Fatigue History of edema History of stress test Marijuana use Migraine headache Normal Holter exam Smoker Wears dentures Wears glasses Surgical History History of History of tonsillectomy and adenoidectomy Social History Smoking Status: Current every day smoker tobacco type: cigarettes alcohol intake: current details: social substance use type: does not use caffeine: Yes what type of physical activity do you participate in: walking frequency: 1-2 times per week seatbelt use: always do you feel safe at home: Yes HPI BS/IUD removal Details: ASIA DALTON is a 37 year old who presents for preop visit planning laparoscopic BS and IUD removal. Female Reproductive History Menopausal Symptoms: No night sweats History 3 Elective abortions Hx Para 1 Spontaneous abortions 1 Hx # Term Pregnancies Ectopic pregnancies Hx # Pregnancies Multiple births 1 # of living children 2 Past Pregnancies Del. Date Name GA/Weeks Outcome Route Bth Weight Infant Gen Labor Lgth Anesthesia Del Locatn Provider FOB Unknown Hafsa 2014 34 2 lbs 13oz Female Unknown 2014 Abrienna 4lbs Female Unknown 2022 SAB ROS Const Constitutional: Denies fatigue, night sweats, weight gain or weight loss ENT ENT: Reports system reviewed and no additional complaints, except as documented Cardio Card: Denies chest pain Resp Resp: Denies cough or dyspnea GI GI: Reports as per HPI; Denies abdominal pain, constipation, nausea or vomiting : Denies nipple discharge, urinary frequency, urinary incontinence, urinary hesitancy, urinary urgency, vaginal discharge, vaginal dryness, vaginal odor or vaginal pruritus Musc Musc: Denies arthralgias, back pain or muscle weakness Skin Skin/Breast: Denies alopecia, change in hair, dry skin, breast mass, breast pain, breast skin changes or nipple discharge Neuro Neuro: Reports system reviewed and no additional complaints, except as documented Psych Psych: Reports system reviewed and no additional complaints, except as documented Endo Endo: Denies cold intolerance, excessive sweating, heat intolerance or polydipsia Dev/Lymph Hematologic/Lymphatic: Denies easy bleeding, Denies easy bruising and Denies lymphadenopathy Exam Const General: cooperative, healthy appearing, comfortable and no acute distress Orientation: alert HENMT Head: normal to inspection and normocephalic Ears: hearing grossly normal bilaterally and external ears normal Nose: external nose normal and nares normal Face and sinus: normal facial exam Neck Neck: normal visual inspection and no lymphadenopathy Thyroid: thyroid normal Chest Chest palpation & inspection: normal inspection of the chest Resp Effort & Inspection: normal respiratory effort Auscultation: clear to auscultation bilaterally Cardio Rate: regular rate Rhythm: regular rhythm Heart Sounds: S1 normal and S2 normal GI Inspection: normal to inspection and non-distended Palpation: soft and no hepatosplenomegaly Musc Other: gross motor intact no deficits, full bilateral strength Skin General: no rashes or lesions noted Neuro General: patient alert, patient awake, moves all extremities and no focal motor deficits Motor: muscle tone normal throughout Extrem General: normal to inspection and no pedal edema Psych Appearance: grossly normal Mental Status: mental status grossly normal Affect: normal affect Speech and Movement: speech and movement normal Coding Level of Care Code No Charge Diagnoses Malpositioned IUD T83.32XA Sterilization Z30.2 depression F53.0 Assessment and Plan Assessment and Plan (1) Malpositioned IUD: Status: Acute Comment: repeat ultrasound to determine if hysteroscopy needed at time of sterilization. (2) Sterilization: Status: Acute Comment: title 19 signed 11/13. plan laparoscopic bilateral salpingectomy. (3) depression: Status: Acute Comment: priya, counseling recommend Medications: Changed From citalopram 20 mg PO DAILY 30 tabs 12RF F53.0 - depression To citalopram 40 mg PO DAILY 30 tabs 12RF F53.0 - depression Plan After discussing the patient's diagnosis and treatment plan options, patient wishes to proceed with surgical management. I have discussed with the patient the risks, benefits, and alternatives of the procedure which include but are not limited to risks of anesthesia, bleeding, infection, possible damage to bowel, bladder, or surrounding vasculature which could lead to additional surgery to evaluate any complications. Patient agrees to procedure and wishes to proceed. ACOG/uptodate references given for additional information regarding procedure.
[2023-01-18 10:18] LABS: Hematocrit 45.3 % (37-47); Hemoglobin 14.9 g/dL (12.0-15.0); Mean Corp Hgb Conc 32.9 g/dL (32-36); Mean Corpuscular Hgb 29.1 pg (27.0-32.0); Mean Corpuscular Volume 88.5 fL (81-99); Mean Platelet Vol. 9.9 fl (6.2-12.0); Platelet Count 207 K/mm3 (150-450); RBC Distribution Width CV 12.2 % (11.6-14.6); RBC Distribution Width SD 39.8 fl (35.1-43.9); Red Blood Count 5.12 M/mm3 (4.2-5.4); White Blood Count 5.2 K/mm3 (4.4-11.0)
[2023-01-18 10:37] LABS: Prothrombin Time (Protime)PT. 12.9 SECONDS (11.7-14.9)
[2023-01-18 10:38] LABS: Partial Thromboplast Time 27.7 Seconds (24.1-36.2)
[2023-01-18 11:04] LABS: AST(SGOT) 16 U/L (15-37); Alanine Aminotransfer ALT/SGPT 26 U/L (13-56); Albumin, Serum 3.7 g/dL (3.2-5.0); Alkaline Phosphatase 51 U/L (45-117); Globulin 3.2 g/dL (2.2-4.2); Protein, Total 6.9 g/dL (6.4-8.2)
[2023-01-19] VITALS (7 sets, daily range): BP systolic 100–119; BP diastolic 60–73; PULSE 57–80; RESP 14–18; TEMP 36.1; O2SAT 94–97; BMI 35.9
[2023-01-19 07:24] LABS: Internal QC Validated? YES +Cl - CLEAR BKGD; Pregnancy, Urine Negative Negative; Record Kit Lot#,Urine Preg HCG0000667200
[2023-01-19] MEDS: Lactated Ringers 1,000 ML 15 ML IV ×2 (07:25→11:19)
--- NOTE | 2023-01-19 08:55 | EMB_PTH ---
PATIENT: ASIA DALTON [place] [facility] [place][id number] AGE/SX: 37/F ROOM: RE01/19/[address]: Dr. Trudy Dwyer MD : 1985 BED: DIS: 01/19/2023 SPEC #: [id number] RECD: 01/19/23 10:28 STATUS: INES BELINDA #: [id number] DANIKA: 01/19/23 08:[address]: Trudy Dwyer DEPT: SURGICAL PATHOLOGY RECD BY: Jacquie Harrison ENTERED: 01/19/23 11:30 SP TYPE: ENDOM BX/C OTHR DR: MD Dr. Giuseppe Garcia MD Tissues: A - Endometrium, NOS B - Fallopian tube Procedures: Surgery Specimen Level II Surgery Specimen Level IV HEADER OPERATION: Laparoscopic salpingectomy, D&C hysteroscopy PRE-OP DIAGNOSIS: Malpositioned IUD, sterilization TISSUE SUBMITTED: A. Endometrial curetting, B. Bilateral fallopian tubes MICROSCOPIC DIAGNOSIS A. Endometrial curetting: Disordered proliferative endometrium. Chronic endometritis. Fragments of benign ecto- and endocervical mucosa with acute and chronic inflammation. B. Bilateral fallopian tubes, salpingectomy: Bilateral fallopian tubes with chronic inflammation. Paratubal cysts. SJ: 01/20/2023 MICROSCOPIC DESCRIPTION Slides are reviewed. GROSS DESCRIPTION A. Received in formalin is one container labeled with the patient name and designated endometrial curettings. The specimen consists of multiple elongated and irregular fragments of hemorrhagic soft tissue measuring in aggregate 3 x 2.5 x .03 cm. The specimen is totally submitted in one cassette. B. Received in fixative is one container labeled with the patient's name and designated bilateral fallopian tubes. The specimen consists of bilateral fallopian tubes including fimbrial ends measuring 8 cm and 6 cm in length and 1.0 cm in diameter. The fallopian tubes are not identified as right or left. Sections reveal unremarkable cut surfaces. Two paratubal cysts are noted adjacent to one fallopian tube measuring 0.3 and 0.8 cm in greatest dimension. 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 / YANELIS:ama 01/19/23 TC:3 CPT: 13151 x3
--- NOTE | 2023-01-19 09:22 | PCM.OPRPT ---
Problems Associated Problem List Diagnoses (1) Sterilization: Report of Operation Date of Procedure: 01/19/23 Pre-Operative Diagnosis: see problem list Post-Operative Diagnosis: same Surgery/Procedure Performed:: laparoscopic bilateral salpingectomy lysis of omental to anterior abdominal wall adhesions d and c hysteroscopy Description of Surgical Findings:: nl uterus tubes ovaries, uterine to anterior abdominal wall adhesions Surgeon: Trudy Dwyer implementation architect: Kia Cerda Type of Anesthesia: General and Local Specimen's removed: tubes Drains: none Estimated Blood Loss (mL): 50 Fluids Replaced: crystalloid Description of Procedure: Patient was taken in the operating room and was placed under general anesthesia was prepped and draped in normal sterile fashion in the dorsal lithotomy position. Bladder was drained of clear urine and SCDs were on preoperatively. Cervix was progressively dilated to allow passage of a 5 mm hysteroscope. The lining was fully visualized and noted to have no retained iud seen, some posterior uterine wall calcifications were seen . Uterine sounded to 8 cm. Curettage was performed and specimen removed , sent to pathology. All instruments were removed from the vagina and excellent hemostasis was noted. Patient was awoken and taken to recovery in stable condition. Uterus was sounded and a uterine manipulator was placed after dilating. Attention was then paid to the abdominal portion of the procedure and the umbilicus was elevated with towel clamps and injected with Marcaine and after a 5 mm incision was made and the Veress needle was entered into the abdomen confirmed to be intra-abdominal with a low opening pressure of less than 5 mmHg. Abdomen was insufflated with CO2 gas and a 5 mm optical trocar was placed under direct visualization. 5 mm ports in the right and left lower quadrants were placed under direct visualization. omental to umbilical adhesions were taken down with the ligasure without complications Uterus was well visualized and bilateral fallopian tubes identified and bilateral tubes were elevated and transecting across the mesosalpinx and the attachment to the uterine corpus bilaterally the tubes were removed without complication. Excellent hemostasis was noted. Fallopian tubes were removed through the lower port site without complication. Liver and upper abdomen were visualized notably within normal limits and no other gross abnormalities were seen in the abdomen. All instruments removed from the abdomen after gas was desufflated. Port sites were closed with 3-0 Monocryl Steri's and op sites were applied. All instruments removed from the vagina and patient was awoken and taken recovery in stable condition. Grafts/Implants Used: none Complications none Admit VTE Documentation VTE Present on Admission: No VTE Mechan Device Prophylaxis: SCD's Multi Select Codes Urinary/Genital Urinary/Genital CPT Codes: 77104 Laproscopic BS/O
--- NOTE | 2023-01-19 09:23 | DCINST_ITS ---
Discharge Instructions Diet Discharge Diet: No restrictions Activity Discharge Activity: Return to Normal Activity, May Not Drive (for 2 weeks or while taking narcotic pain meds.), May Shower and May Take a Tub Bath (in 7 days) May resume sexual activity in: 1 week Weight Bearing Status: Full weight bearing Dressing / Incision Call your doctor if your incision/area has: Continuous Slow Oozing, Sudden Increased Bleeding, Increased Pain/ Swelling, Increased Redness and Foul Smelling Discharge Call your doctor if you observe: Fever of 101 or Higher, Using more than 1 pad per hour, Shortness of breath, Chest pain and Uncontrolled pain Suture Line Care: Avoid Pulling/Pushing and Avoid Pinching/Bending Remove Dressing in: 1 week (if present) Cleanse incision/area with: Soap & Water and Keep Dressing Clean & Dry Follow Up Care When: Call to make an appointment with your doctor for a fu/incision check in 1- 2 weeks. Test Results: Test results from this visit will be discussed in further detail at your follow- up appointment, if applicable. Discharge Plan Admission Attending Provider: Trudy Dwyer Primary Care Provider: Giuseppe Chin Consulting Providers: Justo Chavez Discharge Orders/Prescriptions Prescriptions: New oxycodone-acetaminophen [Percocet] 5-325 mg tablet 1 tab PO Q6H PRN (Reason: pain) 7 Days Qty: 10 0RF naproxen [naproxen] 500 mg tablet 500 mg PO BID PRN PRN (Reason: Pain) Qty: 30 1RF No Action PNV #[id number] acid-dha 35 mg iron-5 mg iron-1 mg capsule 1 cap PO QHS Qty: 30 12RF norethindrone (contraceptive) 0.35 mg tablet 0.35 mg PO DAILY Qty: 28 12RF Rx Instructions: start day 1 of menstrual cycle citalopram 40 mg tablet 40 mg PO DAILY Qty: 30 12RF Referrals / Follow Up: Giuseppe Chin MD [Primary Care Provider] - Disposition Disposition (needs filled in before D/C Order can be placed): Home, Self Care
[2023-01-19] MEDS: Bupivacaine 0.25% 30 ML Vial (09:58)
[2023-01-19] MEDS: Oxycodone/Apap 5/325 Tablet PO (11:19)
== END 2023-01-19 12:01 | disposition home or self-care (01) ==
LOC: SDC 07:02 → AC 07:03
PROVIDERS: Anesthesiology; PCP Family Medicine; Referring Provider Obstetrics & Gynecology; Visit Provider Obstetrics & Gynecology
PROC: (CPT 58661; principal; 2023-01-19 08:40)
PROC: 0UDB8ZZ Extraction of Endometrium, Via Natural or Artificial Opening Endoscopic (ICD-10-PCS; CPT 58558; 2023-01-19 08:40)
DX: Z30.2 Encounter for sterilization (principal); F17.210 Nicotine dependence, cigarettes, uncomplicated; F53.0 Postpartum depression; N71.1 Chronic inflammatory disease of uterus; N83.8 Other noninflammatory disorders of ovary, fallopian tube and broad ligament; N70.13 Chronic salpingitis and oophoritis
CPT/HCPCS: 58661; 58558; 00840; 36415; 80076; 81025; 85027; 85610; 85730; 86850; 86900; 86901; 88302; 88305; J7120; J2405

== ENCOUNTER → 2024-07-19 | Outpatient (CLI) | payer MEDICAID, SELFPAY ==
[2024-07-19 14:06] LABS: HIV Nonreactive (Nonreactive); Hepatitis B Surface Antigen Nonreactive (Nonreactive); Hepatitis C Antibody Nonreactive (Nonreactive); Syphilis Antibodies Reactive (Nonreactive)
[2024-07-21 05:07] LABS: HSV 1 IgG Reactive (Non Reactive); HSV 2 IgG Reactive (Non Reactive)
[2024-07-22 06:07] LABS: Chlamydia By Nucleic Acid AMP Negative (Negative); Gonococcus By Nucleic Acid AMP Negative (Negative)
[2024-07-24 18:08] LABS: HPV APTIMA, High Risk Negative (Negative)
== END | disposition home or self-care (01) ==
PROVIDERS: PCP Family Medicine; Referring Provider Nurse Practitioner Family; Visit Provider Nurse Practitioner Family
DX: Z11.3 Encounter for screening for infections with a predominantly sexual mode of transmission (principal); Z12.4 Encounter for screening for malignant neoplasm of cervix; N89.8 Other specified noninflammatory disorders of vagina
CPT/HCPCS: 36415; 86695; 86696; 86703; 86780; 86803; 87070; 87077; 87186; 87205; 87340; 87491; 87591; 87624; 88175; G0145

== ENCOUNTER → 2024-08-09 | Outpatient (CLI) | payer MEDICAID, SELFPAY ==
[2024-08-09 18:22] LABS: Syphilis Antibodies Reactive (Nonreactive)
== END | disposition home or self-care (01) ==
PROVIDERS: PCP Family Medicine; Referring Provider Nurse Practitioner Family; Visit Provider Nurse Practitioner Family
DX: N89.8 Other specified noninflammatory disorders of vagina (principal)
CPT/HCPCS: 36415; 86780; 87070; 87205